=== PATIENT | female | born 1950 | race Caucasian/White ===

== ENCOUNTER 2016-11-14 14:35 | Inpatient (IN) ==
[2016-11-14] MEDS ORDERED: SODIUM CHLORIDE 0.9% 1,000 ML IV STA (14:58)
[2016-11-14] MEDS ORDERED: ONDANSETRON 4 MG/2 ML VIAL IV STA (14:58)
[2016-11-14 15:22] LABS: Basophils % 0.3 % (0.0-0.8); Hematocrit 31.5 VOL% (35.7-47.0); Hemoglobin 10.8 GM/DL (12.0-16.0); Immature Granulocytes % 1.4 %; Lymphocytes # 0.8 10*3/uL (1.4-4.0); Lymphocytes % 11.1 % (21.3-54.2); Mean Corpuscular HGB Conc 34.3 GM/DL (32-36); Mean Corpuscular Hemoglobin 28 PG (27-34); Mean Corpuscular Volume 81.2 FL (87-102); Mean Platelet Volume 11.3 FL (9.6-12.0); Monocytes # 0.6 10*3/uL (0.11-0.8); Monocytes % 7.6 % (1.7-12.7); NRBC # 0.04 10*3/uL; Neutrophils # 5.9 10*3/uL (1.4-7.4); Neutrophils % 79.6 % (38.7-73.9); Platelet Count 228 T/CUMM (130-400); Red Blood Count 3.88 MC/CUMM (3.8-5.5); Red Cell Distribution Width 16.8 % (9.3-17.3); White Blood Count 7.4 T/CUMM (4-12)
[2016-11-14] MEDS ORDERED: HYDROmorphone 2 MG/1 ML VIAL IV STA (15:34)
[2016-11-14] MEDS ORDERED: ONDANSETRON 4 MG/2 ML VIAL ONE (15:35)
[2016-11-14] MEDS ORDERED: HYDROmorphone 2 MG/1 ML VIAL ONE (15:36)
[2016-11-14 16:21] LABS: Alanine Aminotransferase 14 U/L (13-56); Albumin 3.5 G/DL (3.4-5.0); Alkaline Phosphatase 168 U/L (45-117); Aspartate Amino Transferase 39 U/L (0-37); Bilirubin,Total < 0.39 MG/DL (0.2-1.0); Blood Urea Nitrogen 71 MG/DL (7-18); Calcium 7.7 MG/DL (8.5-10.1); Glucose 110 MG/DL (74-106); Osmolality,Calculated 296.7 MOS/KG (273-304); Potassium 2.9 MMOL/L (3.5-5.1); Sodium 138 MMOL/L (136-145); Total Protein 9.4 G/DL (6.4-8.3)
[2016-11-14] MEDS ORDERED: LOPERAMIDE 2 MG CAPSULE PO PRN ×2 (16:27)
[2016-11-14] MEDS ORDERED: MYLANTA/LIDO VISC 2:1 300 ML BOTTLE SWISH/SWAL PRN (16:27)
[2016-11-14] MEDS ORDERED: ACETAMINOPHEN 325 MG TABLET PO PRN (16:27)
[2016-11-14] MEDS ORDERED: ALUMINUM/MAGNES/SIMETH MAX STR 30 ML UDCUP PO PRN (16:27)
[2016-11-14] MEDS ORDERED: traMADol 50 MG TABLET PO PRN (16:27)
[2016-11-14] MEDS ORDERED: diphenhydrAMINE CAP 25 MG CAPSULE PO PRN (16:27)
[2016-11-14] MEDS ORDERED: MAGNESIUM HYDROXIDE SUSP 30 ML UDCUP PO PRN (16:27)
[2016-11-14] MEDS ORDERED: guaiFENesin 200 MG/10 ML UDCUP PO PRN (16:27)
[2016-11-14] MEDS ORDERED: MYLANTA/LIDO VISC 2:1 300 ML BOTTLE SWISH/SPIT PRN (16:27)
[2016-11-14] MEDS ORDERED: LACTULOSE 20 GM/30 ML UDCUP PO PRN (16:27)
[2016-11-14] MEDS ORDERED: SODIUM CHLORIDE 0.9% 1,000 ML IV SCH (16:30)
[2016-11-14] MEDS ORDERED: POTASSIUM CHLORIDE 20 MEQ TABLET PO STA (16:31)
--- NOTE | 2016-11-14 16:31 | Emergency Department Note ---
Romana Walker Hilary, am scribing for, and in the presence of, Dmitry Dean MD 14:58. Dianne Walker Phillip K, MD, personally performed the services described in this documentation, ascribed by Carolina Avendano in my presence, and it is both accurate and complete 630 . Arrival - Arrival Chief Complaint: Nausea/Vomiting/Diarrhea Stated Complaint: nausea/vomiting ED Nursing Triage Note: Brought in per EMS from home with c/o nausea/vomiting/ diarrhea onset last pm after receiving chemo injection in abdomen yesterday at cancer center. +generalized abdominal pain. +back pain. Mode of Arrival: Stretcher Limitations: No Limitations Source: Patient, Significant other, RN Notes Reviewed Time Seen by Provider: 11/14/16 14:50 - History of Present Illness HPI Narrative: Pt is a 65 y/o female brought to the ED via EMS for c/o nausea, vomiting and diarrhea which onset last night. Pts reports that she received velcade chemo injection in her abdomen yesterday at the cancer center. Pt confirms abdomen pain, back pain, nausea, vomiting and diarrhea. No other complaints or problems stated in the ED. Onset (ago): hour(s) Consistency: constant Severity: mild Severity scale (1-10): 1 Quality: cramping Date of Last Menstrual Period: hyst Allergies/Adverse Reactions: Allergies Allergy/AdvReac Type Severity Reaction Status Date / Time metformin Allergy Mild RASH Verified 11/14/16 14:47 Penicillins Allergy Unknown/Unable Verified 11/14/16 14:47 to obtain morphine AdvReac Mild Nausea Verified 11/14/16 14:47 Home Medications: Home Medications Medication Instructions Recorded Confirmed Type ALPRAZolam [Alprazolam] 1 mg PO DAILY PRN 11/14/16 11/14/16 History Aspirin EC Tab 81 mg PO QAM 11/14/16 11/14/16 History Atorvastatin [Lipitor] 20 mg PO DAILY 11/14/16 11/14/16 History Fenofibrate [Fenofibrate] 160 mg PO DAILY 11/14/16 11/14/16 History Gabapentin [Gabapentin] 800 mg PO QID 11/14/16 11/14/16 History Insulin Aspart [NovoLOG FlexPen] 7 unit SUBCUT QPM 11/14/16 11/14/16 History Insulin Degludec [Tresiba 30 - 45 unit SUBCUT QAM 11/14/16 11/14/16 History Flextouch U-200] Metoprolol Tartrate [Metoprolol 100 mg PO QAM 11/14/16 11/14/16 History Tartrate] Omeprazole [Omeprazole] 40 mg PO QAM 11/14/16 11/14/16 History Ondansetron HCl [Ondansetron HCl] 8 mg PO Q6H PRN 11/14/16 11/14/16 History Oxycodone HCl/Acetaminophen 1 tablet PO Q6H PRN 11/14/16 11/14/16 History [Oxycodone-Acetaminophen 10-325] PARoxetine HCl [Paroxetine HCl] 40 mg PO QAM 11/14/16 11/14/16 History Promethazine Tab [Phenergan Tab] 25 mg PO Q8H 11/14/16 11/14/16 History Triamterene/Hydrochlorothiazid 1 each PO QAM 11/14/16 11/14/16 History [Triamterene-Hctz 37.5-25 mg Tb] Review of System - Review of System 12 point system: reviewed and no additional remarkable complaints except as stated - Review of System Constitutional: Absent: fever Gastrointestinal: Present: abdominal pain, nausea, vomiting, diarrhea Musculoskeletal: Present: back pain Medical,Surgical,& Family Hx - Medical History Cardio: History of: Hypertension Neurology: No history of: Seizures Endocrine: History of: Diabetes Mellitus (IDDM) Musculoskeletal: History of: Back/Neck Problems Other: History of: Cancer (multiple myeloma) - Surgical History Reproductive Surgeries: Surgical HX of;: Hysterectomy Orthopedic Surgeries: Surgical HX of;: Orthopedic Surgery - Social History Smoking Status: Never smoker Frequency of Alcohol Use: None Type of Drug Use: None Exam Vital Signs: Vital Signs Temperature 97.6 F 11/14/16 14:42 Pulse Rate 93 H 11/14/16 15:50 Respiratory Rate 20 11/14/16 15:50 Blood Pressure 169/79 11/14/16 15:50 O2 Sat by Pulse Oximetry 98 11/14/16 15:50 - General General appearance: alert, in no apparent distress - Head Head exam: Present: atraumatic, normocephalic - Eye Eye exam: Present: PERRL, EOMI. Absent: normal appearance (pale conjuctiva) - ENT ENT exam: Present: mucous membranes dry (pale), TM's normal bilaterally. Absent : mucous membranes moist - Neck Neck exam: Present: full ROM, trachea midline. Absent: tenderness - Chest Chest inspection: Present: symmetric chest wall rise. Absent: tenderness - Respiratory Respiratory exam: Present: normal lung sounds bilaterally. Absent: respiratory distress - Cardiovascular Cardiovascular exam: Present: regular rate, normal rhythm, normal heart sounds. Absent: murmur, rubs, gallop - Abdominal Exam Abdominal exam: Present: soft, tenderness, diminished bowel sounds (no bowel sounds). Absent: distention, normal bowel sounds - Extremities Exam Extremities exam: Present: full ROM. Absent: tenderness, pedal edema - Back Exam Back exam: Present: full ROM. Absent: tenderness - Neurological Exam Neurological exam: Present: alert, oriented X3, CN II-XII intact. Absent: motor sensory deficit - Psychiatric Psychiatric exam: Present: normal affect, normal mood - Skin Skin exam: Present: warm, dry, intact, normal color. Absent: rash Results - Labs CBC & BMP: 11/14/16 14:58 11/14/16 15:45 Lab Results: I have reviewed the patients labs Disposition Clinical Impression: Multiple myeloma, Nausea vomiting and diarrhea, Abdominal pain, Hypocalcemia, Chronic renal failure, Dehydration Case discussed with: patient, patient's family, patient's physician Disposition: Still a Patient Condition: Guarded Additional Instructions: Admit to dr. ledbetter
[2016-11-14 16:46] LABS: Magnesium 1.1 MG/DL (1.8-2.4); Uric Acid 14.5 MG/DL (2.6-6.0)
[2016-11-14] MEDS ORDERED: POTASSIUM CHLORIDE 20 MEQ TABLET PO ONE (17:07)
[2016-11-14] MEDS ORDERED: DEXT 5% NACL 0.45% KCL 20 MEQ 20 MEQ/1,000 ML BAG IV SCH (18:25)
[2016-11-14] MEDS: ONDANSETRON 4 MG/2 ML VIAL IV PRN (18:45)
[2016-11-14] MEDS ORDERED: MAGNESIUM SULF RIDER 4 GM in PREMIX 1 EACH IV ONE (18:57)
[2016-11-14] MEDS: HYDROmorphone 2 MG/1 ML VIAL IV PRN (19:18)
[2016-11-14] MEDS: SODIUM BICARB INJ 50 MEQ, POTASSIUM CHLORIDE INJ 20 MEQ in DEXTROSE 5% NACL 0.45% 1,000 ML IV SCH (20:42)
[2016-11-14] MEDS ORDERED: POTASSIUM CHLORIDE 20 MEQ TABLET PO SCH (21:00)
[2016-11-14] MEDS: PROMETHAZINE INJ 25 MG in SODIUM CHLORIDE 0.9% 50 ML IV PRN (22:39)
[2016-11-15] MEDS: HYDROmorphone 2 MG/1 ML VIAL IV PRN ×5 (01:13→19:27)
[2016-11-15] MEDS: ONDANSETRON 4 MG/2 ML VIAL IV PRN (01:18)
[2016-11-15] MEDS: PROMETHAZINE INJ 25 MG in SODIUM CHLORIDE 0.9% 50 ML IV PRN ×3 (02:46→19:27)
--- NOTE | 2016-11-15 06:12 | XRay Report ---
Exam: XR KUB Date: 11/15/2016 5:21 AM Comparison: None Indication: Nausea and vomiting Technique:[Supine abdomen] Findings: Mild gaseous distention of the stomach and proximal duodenum. Otherwise there is diminished gas in the bowel. Prior cholecystectomy with extensive postoperative findings in the thoracic and lumbar spine with laminectomy defects and fusion. Multiple bilateral rib fractures are noted in various stages of healing with small lytic lesions. Osteopenia. 12 mm chronic finding in the right ilium. Impression: Mild gaseous distention of the stomach and proximal duodenum which could be related to ileus, pancreatitis, early bowel obstruction, etc. Follow-up x-ray may be helpful for further evaluation. Osseous findings consistent with known multiple myeloma with multiple rib fractures in various stages of healing and extensive postoperative findings in the spine. Prior cholecystectomy with probable 12 mm benign bone island in the right ilium. PROCEDURE INTERPRETED AT [facility] DEPARTMENT OF RADIOLOGY Final Report Signed by: Dr. Brenda Aguayo
[2016-11-15 06:32] LABS: Basophils % 0.2 % (0.0-0.8); Hematocrit 25.7 VOL% (35.7-47.0); Immature Granulocytes % 1.8 %; Immature Granulocytes Absolute 0.08 #; Lymphocytes # 0.6 10*3/uL (1.4-4.0); Lymphocytes % 14.3 % (21.3-54.2); Mean Corpuscular HGB Conc 33.1 GM/DL (32-36); Mean Corpuscular Hemoglobin 27 PG (27-34); Mean Corpuscular Volume 82.4 FL (87-102); Mean Platelet Volume 12.6 FL (9.6-12.0); Monocytes # 0.5 10*3/uL (0.11-0.8); Monocytes % 10.8 % (1.7-12.7); NRBC # 0.02 10*3/uL; Neutrophils # 3.3 10*3/uL (1.4-7.4); Neutrophils % 72.9 % (38.7-73.9); Platelet Count 215 T/CUMM (130-400); Red Blood Count 3.12 MC/CUMM (3.8-5.5); Red Cell Distribution Width 16.9 % (9.3-17.3)
[2016-11-15 07:04] LABS: Albumin 3.1 G/DL (3.4-5.0); Bilirubin,Total 0.9 MG/DL (0.2-1.0); Calcium 7.1 MG/DL (8.5-10.1); Hemoglobin 8.5 GM/DL (12.0-16.0); Magnesium 3.3 MG/DL (1.8-2.4); Osmolality,Calculated 305.5 MOS/KG (273-304); Potassium 3.2 MMOL/L (3.5-5.1); Total Protein 8.1 G/DL (6.4-8.3); White Blood Count 4.5 T/CUMM (4-12)
--- NOTE | 2016-11-15 07:10 | XRay Report ---
Portable chest Date: 11/15/2016 Clinical history: Nasogastric tube placement Comparison: 11/15/2016 Technique: Portable limited AP chest Findings: The tip of the nasogastric tube projects in the stomach. Limited evaluation the chest. Impression: The tip of the nasogastric tube projects in satisfactory position in the stomach. PROCEDURE INTERPRETED AT [facility] DEPARTMENT OF RADIOLOGY Final Report Signed by: Dr. Brenda Aguayo
[2016-11-15] MEDS: SODIUM BICARB INJ 50 MEQ, POTASSIUM CHLORIDE INJ 20 MEQ in DEXTROSE 5% NACL 0.45% 1,000 ML IV SCH ×2 (07:23→18:26)
--- NOTE | 2016-11-15 07:40 | Oncology History&Physical ---
Assessment and Plan - Time spent with patient Time spent with patient: Greater than 30 minutes (1) Pancreatitis Status: Acute Assessment and plan: We will continue with IV fluids. Will keep her n.p.o. and leave the NG tube in place for now. I will increase her Dilaudid doses to 2 mg with each injection. She will likely remain in the hospital for a few days while her pancreatitis resolves. We will check labs tomorrow morning including a lipase. I will keep sodium bicarb and potassium in her IV fluids for now. Current Visit: Yes (2) Hypokalemia Status: Acute Current Visit: Yes (3) Metabolic acidosis Status: Acute Current Visit: Yes (4) Hypomagnesemia Status: Acute Current Visit: Yes (5) Multiple myeloma Status: Acute Current Visit: Yes (6) Nausea vomiting and diarrhea Status: Acute Current Visit: Yes (7) Abdominal pain Status: Acute Current Visit: Yes (8) Chronic renal failure Status: Acute Current Visit: Yes History of Present Illness History of present illness: Ms. Fuentes is a 65 year old female with newly diagnosed multiple myeloma who have been treating with Velcade for the last 2 months. She presented to emergency room yesterday with severe abdominal pain and nausea with vomiting. Her lipase is elevated at 981. She is admitted for further treatment. She is placed on IV fluids and made n.p.o. She was also hypokalemic and hypomagnesemic. Her bicarb level was down to 12 as well. She has chronic kidney disease at baseline with a normal creatinine between 2.5 and 3.5. Her creatinine yesterday was slightly elevated at 3.8. During the night she developed severe nausea and vomiting. Abdominal x-ray was done which showed dilation of the stomach and the duodenum with findings consistent with pancreatitis. This is a rare side effect with subcu Velcade. She feels better now with an NG tube in place. We are aggressively providing IV fluids. Her potassium is improving. Her magnesium level is now greater than 3. Her bicarb level has improved as well. Home Medications Medication Instructions Recorded Confirmed Type ALPRAZolam [Alprazolam] 1 mg PO DAILY PRN 11/14/16 11/14/16 History Aspirin EC Tab 81 mg PO QAM 11/14/16 11/14/16 History Atorvastatin [Lipitor] 20 mg PO DAILY 11/14/16 11/14/16 History Fenofibrate [Fenofibrate] 160 mg PO DAILY 11/14/16 11/14/16 History Gabapentin [Gabapentin] 800 mg PO QID 11/14/16 11/14/16 History Insulin Aspart [NovoLOG FlexPen] 7 unit SUBCUT QPM 11/14/16 11/14/16 History Insulin Degludec [Tresiba 30 - 45 unit SUBCUT QAM 11/14/16 11/14/16 History Flextouch U-200] Metoprolol Tartrate [Metoprolol 100 mg PO QAM 11/14/16 11/14/16 History Tartrate] Omeprazole [Omeprazole] 40 mg PO QAM 11/14/16 11/14/16 History Ondansetron HCl [Ondansetron HCl] 8 mg PO Q6H PRN 11/14/16 11/14/16 History Oxycodone HCl/Acetaminophen 1 tablet PO Q6H PRN 11/14/16 11/14/16 History [Oxycodone-Acetaminophen 10-325] PARoxetine HCl [Paroxetine HCl] 40 mg PO QAM 11/14/16 11/14/16 History Promethazine Tab [Phenergan Tab] 25 mg PO Q8H 11/14/16 11/14/16 History Triamterene/Hydrochlorothiazid 1 each PO QAM 11/14/16 11/14/16 History [Triamterene-Hctz 37.5-25 mg Tb] Allergies Allergy/AdvReac Type Severity Reaction Status Date / Time metformin Allergy Mild RASH Verified 11/14/16 14:47 Penicillins Allergy Unknown/Unable Verified 11/14/16 14:47 to obtain morphine AdvReac Mild Nausea Verified 11/14/16 14:47 Medical,Surgical,& Family Hx - Medical History Cardio: History of: Hypertension Neurology: No history of: Seizures Endocrine: History of: Diabetes Mellitus (IDDM) Gastrointestinal: History of: Clostridium Difficile, GERD Musculoskeletal: History of: Back/Neck Problems Other: History of: Cancer (multiple myeloma) - Surgical History Reproductive Surgeries: Surgical HX of;: Hysterectomy Orthopedic Surgeries: Surgical HX of;: Orthopedic Surgery (3 Back surgery (Rods & Screws) since February) - Family History Family History: Comment Only: Family Cancer (Lung & Stomach Cancer) - Social History Smoking Status: Never smoker Frequency of Alcohol Use: None Type of Drug Use: None 12 point system: reviewed and no additional remarkable complaints except as stated - Constitutional Constitutional: Present: fatigue - Respiratory Respiratory: Absent: cough, dyspnea - Gastrointestinal Gastrointestinal: Present: abdominal pain, nausea, vomiting Exam - Constitutional Vitals: Period Temp Pulse Resp BP Sys/Miller Pulse Ox Last 24 Hr 97.1 F-98.5 F 88-96 16-24 133-182/57-96 90-100 General appearance: normal weight, mild distress - Head Head Exam: Present: normocephalic, atraumatic - Eye Eye Exam: Present: EOMI Pupils: Present: PERRL - ENT ENT exam: Present: normal exam, normal oropharynx - Neck Neck exam: Absent: lymphadenopathy, thyromegaly - Respiratory Respiratory exam: Present: CTAB. Absent: wheezes - Cardiovascular Cardiovascular exam: Present: tachycardia. Absent: JVD, systolic murmur - GI/Abdominal GI/Abdominal exam: Present: soft. Absent: ascites, distended, firm, mass - Neurological Exam Neurological exam: Present: alert, oriented X3 - Psychiatric Psychiatric exam: Present: normal affect, normal mood - Skin Skin exam: Present: warm, dry Results - Labs CBC & BMP: 11/15/16 04:46 11/15/16 04:46 Lab Results: I have reviewed the past 24 hour labs - Diagnostic Findings Procedure: Chest x-ray: report reviewed by me, KUB x-ray: report reviewed by me
[2016-11-15 10:03] LABS: Apearance,Urine Clear (Clear); Bacteria,Urine Occasional /HPF (Few); Bilirubin,Urine Negative (Negative); Blood, Urine NEGATIVE (Negative); Glucose,Urine (UA) Negative (Negative); Ketones,Urine 25 mg/dL (Negative); Mucus,Urine Occasional /LPF (Occasional); Nitrite,Urine Negative (Negative); Protein,Urine 30 MG/DL; RBC,Urine 2 /HPF (0-4); Squamous Epithelial Cell,Urine Occasional /HPF (0-10); Urine Color Yellow (Yellow); WBC,Urine 4 /HPF (0-6)
[2016-11-15 10:04] LABS: Urine Urobilinogen 0.2 EU/DL (0.2-1.0)
--- NOTE | 2016-11-15 12:55 | Ultrasound Report ---
US right upper quadrant Indication: Pain in the abdomen. Possible pancreatitis. Comparison: None. Technique: Using transcutaneous probe, ultrasound imaging of the right upper quadrant was performed. Ultrasound images were captured and stored. Imaged structures include the liver, gallbladder, pancreas, right kidney, aorta, and inferior vena cava. Findings: Visualized portion of the pancreatic head and pancreatic body demonstrate no significant abnormalities. The liver is not well visualized. As measured, the right hepatic lobe is 12.9 cm. The reliability of this representing an accurate measurement of craniocaudal dimension is questionable. Color flow is present within the interrogated portal and hepatic venous segments. Common bile duct is normal measuring 4.1 mm. Right kidney measures 10.2 cm in craniocaudal dimension. The aorta and inferior vena cava are not identified. Gallbladder is not identified and may be surgically absent. Impression: 1. No specific abnormality of the abdomen is demonstrated. Correlation with serum lipase is recommended. 11/15/2016 12:37 PM PROCEDURE INTERPRETED AT [facility] DEPARTMENT OF RADIOLOGY Final Report Signed by: Dr. Bong Amin
[2016-11-16] MEDS: SODIUM BICARB INJ 50 MEQ, POTASSIUM CHLORIDE INJ 20 MEQ in DEXTROSE 5% NACL 0.45% 1,000 ML IV SCH ×2 (00:11→09:01)
[2016-11-16] MEDS: PROMETHAZINE INJ 25 MG in SODIUM CHLORIDE 0.9% 50 ML IV PRN ×2 (00:14→04:15)
[2016-11-16] MEDS: HYDROmorphone 2 MG/1 ML VIAL IV PRN ×10 (00:14→23:55)
[2016-11-16 04:45] LABS: Eosinophils % 0.3 % (0.00-10.9); Hematocrit 21.8 VOL% (35.7-47.0); Hemoglobin 7.4 GM/DL (12.0-16.0); Immature Granulocytes % 1.1 %; Immature Granulocytes Absolute 0.04 #; Lymphocytes # 0.9 10*3/uL (1.4-4.0); Lymphocytes % 24.6 % (21.3-54.2); Mean Corpuscular HGB Conc 33.9 GM/DL (32-36); Mean Corpuscular Hemoglobin 28 PG (27-34); Mean Corpuscular Volume 82.3 FL (87-102); Mean Platelet Volume 11.6 FL (9.6-12.0); Monocytes # 0.7 10*3/uL (0.11-0.8); Monocytes % 19.5 % (1.7-12.7); Neutrophils % 54.5 % (38.7-73.9); Platelet Count 180 T/CUMM (130-400); Red Blood Count 2.65 MC/CUMM (3.8-5.5); Red Cell Distribution Width 17.1 % (9.3-17.3); White Blood Count 3.7 T/CUMM (4-12)
[2016-11-16 05:11] LABS: Lymphocytes 25 % (20-55); Microcytosis 2+; Platelet Estimate Normal; Segmented Neutrophils 67 % (50-85)
[2016-11-16 05:12] LABS: Anisocytosis 2+; Hypochromasia 2+; Total Cells Counted 100
[2016-11-16 05:28] LABS: Bilirubin,Total 0.5 MG/DL (0.2-1.0); Magnesium 2.3 MG/DL (1.8-2.4); Osmolality,Calculated 301.1 MOS/KG (273-304); Potassium 3.3 MMOL/L (3.5-5.1); Total Protein 7.4 G/DL (6.4-8.3)
[2016-11-16] MEDS ORDERED: SODIUM CHLORIDE 0.9% 250 ML IV PRN (06:31)
--- NOTE | 2016-11-16 06:38 | Oncology Progress Note ---
Assessment and Plan (1) Hypokalemia Status: Acute Current Visit: Yes (2) Metabolic acidosis Status: Acute Current Visit: Yes (3) Hypomagnesemia Status: Acute Current Visit: Yes (4) Multiple myeloma Status: Acute Current Visit: Yes (5) Nausea vomiting and diarrhea Status: Acute Current Visit: Yes (6) Abdominal pain Status: Acute Current Visit: Yes (7) Chronic renal failure Status: Acute Current Visit: Yes (8) Acute pancreatitis Status: Acute Current Visit: Yes Oncology Subjective PN Interval history: Ms. Fuentes is a 65-year-old white female with newly diagnosed multiple myeloma who I have been treating with Velcade injections and was admitted to the hospital this past Sunday with acute pancreatitis. I have no other explanation for the pancreatitis other than Velcade induced. She has improved with conservative measures. She had NG tube placed due to severe nausea. Her nausea has improved. This morning we are allowing her to take in water only why her NG tube is off suction. If she does not have any severe nausea, we could then remove the NG tube later today. We will still hold off on advancing her diet until tomorrow. I would prefer to only take sips of water today. Her lipase level is decreasing and is down to just over 600 today. Her hemoglobin is down to 7.9 so I will give her 2 units of blood. Her potassium and bicarb level have improved. She seems to be improving at a good rate. I anticipate that she will be in the hospital for at least a few more days. I am going from now until next Sunday. I told her that if she is discharged before I get back that she does not need to have any more Velcade injections and just wait to see me in clinic at her next scheduled appointment for us to decide what we are going to do about her treatment. I am considering converting her to Revlimid. Exam - Constitutional Vitals: Period Temp Pulse Resp BP Sys/Miller Pulse Ox Last 24 Hr 96.2 F-98.3 F 91-106 18-22 129-173/69-81 90-98 General appearance: normal weight, mild distress - Head Head Exam: Present: normocephalic, atraumatic - Eye Eye Exam: Present: EOMI Pupils: Present: PERRL - ENT ENT exam: Present: normal exam, normal oropharynx - Neck Neck exam: Absent: lymphadenopathy, thyromegaly - Respiratory Respiratory exam: Present: CTAB. Absent: wheezes - Cardiovascular Cardiovascular exam: Present: RRR. Absent: JVD, systolic murmur - GI/Abdominal GI/Abdominal exam: Present: tenderness, soft. Absent: ascites, distended, firm , mass - Neurological Exam Neurological exam: Present: alert, oriented X3 Results - Labs CBC & BMP: 11/16/16 04:23 11/16/16 04:23 Lab Results: I have reviewed the past 24 hour labs
[2016-11-16] MEDS: DEXT 5% NACL 0.45% KCL 20 MEQ 20 MEQ/1,000 ML BAG IV SCH (08:11)
--- NOTE | 2016-11-16 09:08 | Physician Query Form ---
CLICK EDIT DOCUMENT TO SELECT QUERY ANSWER --> OK --> SIGN Yoselyn Ding RN Clinical Sales Representative [employer] W) [phone] (f) [phone] [email or web address] PROVIDERS: Make your selection(s) from the choices in EACH section by typing an "x" and enter comments in the comment section. Please use your independent medical judgment in providing your response. This request does not imply that any particular answer is desired or expected. CLINICAL INDICATORS: (Providers should not edit this section) Based on documentation of "She has chronic kidney disease at baseline with a normal creatinine between 2.5 and 3.5". Creatinine on admission of 3.90 with a GFR of 12 and decreased to 3.10. Pt. treated with IV fluids of Normal Saline. Clarify which of the following most accurately represents the patient's renal status: ( ) Acute kidney injury (non-traumatic) ( ) Acute renal failure (x ) Acute renal failure with underlying Chronic Kidney Disease (CKD) - please provide stage below ( ) CKD - please provide stage below ( ) Other, please specify: ( ) Clinically unable to determine Chronic Kidney Disease Stages Source: National Kidney Disease Foundation ( ) Stage I (eGFR > or = 90) ( ) Stage II (eGFR 60 - 89) ( ) Stage III (eGFR 30 - 59) ( ) Stage IV (eGFR 15 - 29) ( ) Stage V (eGFR < 15 or dialysis) COMMENTS: PLEASE ALSO DOCUMENT RESPONSE IN PROGRESS NOTES AND/OR DISCHARGE SUMMARY Use of terms such as suspected, likely, or probable (associated with a specific diagnosis that is being evaluated, monitored, or treated as if it exists) are acceptable and can be restated in the discharge summary if not ruled out. MTDD
[2016-11-16] MEDS: ONDANSETRON 4 MG/2 ML VIAL IV PRN (16:41)
[2016-11-17] MEDS: HYDROmorphone 2 MG/1 ML VIAL IV PRN ×6 (02:24→21:38)
[2016-11-17] MEDS: DEXT 5% NACL 0.45% KCL 20 MEQ 20 MEQ/1,000 ML BAG IV SCH ×2 (02:24→15:52)
[2016-11-17 05:48] LABS: Basophils % 0.2 % (0.0-0.8); Eosinophils # 0.1 10*3/uL (0.0-0.87); Eosinophils % 2.4 % (0.00-10.9); Hematocrit 31.3 VOL% (35.7-47.0); Immature Granulocytes % 0.6 %; Immature Granulocytes Absolute 0.03 #; Lymphocytes % 19.7 % (21.3-54.2); Mean Corpuscular HGB Conc 33.2 GM/DL (32-36); Mean Corpuscular Hemoglobin 29 PG (27-34); Mean Corpuscular Volume 85.8 FL (87-102); Mean Platelet Volume 12.5 FL (9.6-12.0); Monocytes # 0.9 10*3/uL (0.11-0.8); Monocytes % 17.7 % (1.7-12.7); Neutrophils % 59.4 % (38.7-73.9); Platelet Count 158 T/CUMM (130-400); Red Cell Distribution Width 16.1 % (9.3-17.3)
[2016-11-17 06:03] LABS: Hemoglobin 10.4 GM/DL (12.0-16.0); Red Blood Count 3.65 MC/CUMM (3.8-5.5); White Blood Count 5.1 T/CUMM (4-12)
[2016-11-17 06:11] LABS: Calcium 7.7 MG/DL (8.5-10.1); Osmolality,Calculated 293.1 MOS/KG (273-304); Potassium 3.4 MMOL/L (3.5-5.1)
[2016-11-17 06:39] LABS: Band Neutrophils 2 % (0-10); Eosinophils 4 % (0-10); Hypochromasia 1+; Lymphocytes 18 % (20-55); Segmented Neutrophils 67 % (50-85); Total Cells Counted 100
[2016-11-17 06:40] LABS: Microcytosis 1+; Platelet Estimate Adequate
--- NOTE | 2016-11-17 09:12 | Oncology Progress Note ---
Oncology Subjective PN Interval history: (1) Hypokalemia Normal potassium. (2) Metabolic acidosis Resolved. (3) Hypomagnesemia (4) Multiple myeloma (4 /2) Anemia Lab work today includes a white cell count of 5100 with a hemoglobin of 10.4 and a platelet count of 158,000. (5) Nausea vomiting and diarrhea Status: Acute Current Visit: Yes (6) Abdominal pain Status: Acute Current Visit: Yes (7) Chronic renal failure Serum creatinine has dropped to 2.3. (8) Acute pancreatitis Lipase is still elevated today at 642. Status: Acute Current Visit: Yes (9) hyperuricemia Her uric acid level was 14.5 on admission. We will recheck this. Oncology Subjective PN Interval history: Ms. Fuentes is a 65-year-old white female with newly diagnosed multiple myeloma who I have been treating with Velcade injections and was admitted to the hospital this past Sunday with acute pancreatitis. I have no other explanation for the pancreatitis other than Velcade induced. She has improved with conservative measures. She had NG tube placed due to severe nausea. The NG tube has been removed. She still has nausea and abdominal distention and on physical examination her abdomen is relatively silent. I hear very few if any bowel sounds. I told her we can replace the NG tube if necessary. She has a prior history of requiring a biliary stent. She also has a prior history of diarrhea secondary to Clostridium difficile. She still having some loose stool so will recheck the C. difficile. In addition, I am consulting gastroenterology to see her with us. Her GI history is complicated. She may have pancreatitis from the Velcade but it may also be due to the bile duct problems. In addition, some of her GI complaints could easily be related to Clostridium difficile or sequelae from it including acquired worsening of lactose intolerance. Lungs: Clear with normal breath sounds. Cardiovascular: Heart rhythm regular without murmur, gallop or rub. No jugular venous distention: Abdomen: Distended with very quiet bowel sounds and with diffuse tenderness. Most tender in left upper quadrant. Musculoskeletal: No focal muscle atrophy or bone or joint deformity. Neurologic: Cranial nerves II through XII are intact. There are no focal neurologic deficits. Psychiatric: Fully oriented and alert. Exam - Constitutional Vitals: Period Temp Pulse Resp BP Sys/Miller Pulse Ox Last 24 Hr 96.6 F-98.9 F 87-106 16-20 147-199/68-92 85-95 Results - Labs CBC & BMP: 11/17/16 04:52 11/17/16 04:52
--- NOTE | 2016-11-17 11:26 | Gastrointestinal Consult Note ---
Assessment and Plan (1) Acute pancreatitis Status: Acute Assessment and plan: 11/17-3 week history of abdominal pain, worsened following chemotherapy tx ( Velcade) with findings of elevated lipase, now trending down. Associated complaints of nausea, vomiting and diarrhea, now resolved. KUB noted as below. Hx of C. diff noted. Hx of biliary stenting noted as below. NG tube removed today. Continue to monitor at present time. Plan and addendum to follow by Dr Nathan. Current Visit: Yes History of Present Illness Chief complaint: Pancreatitis History of present illness: Ms. Fuentes is a 65 year old female who was admitted to the hospital with onset of abdominal pain. Pt has recently been diagnosed with Multiple Myeloma approximately a month ago per patient and states she had Velcade injections started 3 weeks ago. She states not long after this she had onset of LUQ abdominal pain that radiated into her back. She states the pain was fairly constant however wavered in intensity. She has a history of chronic back pain and felt this was possibly related to this however the pain continued to worsen. She states that it at times seemed to be worse with meal ingestion and at other times not. She was then admitted to the hospital on 11/14 with nausea, vomiting and diarrhea after being seen at the cancer center for a chemotherapy treatment. Pt was found on admission to have pancreatitis with lipase level at 981. She had no leukocytosis and denies any fever or chills. She denies any recent weight loss. Denies any tobacco or alcohol use. She has a history of cholecystectomy years ago at [facility] and what sounds like ERCP with biliary stent placement at that time which she states was removed. She also has a history of C. diff in the past. Her lipase levels are down to 642 at this time. KUB with findings of mild gaseous distention of stomach and proximal duodenum possibly related to ileus. No records in our facility database noted for inpatient visits. She states she has been seen at [facility] in the past. Home Medications Medication Instructions Recorded Confirmed Type ALPRAZolam [Alprazolam] 1 mg PO DAILY PRN 11/14/16 11/14/16 History Aspirin EC Tab 81 mg PO QAM 11/14/16 11/14/16 History Atorvastatin [Lipitor] 20 mg PO DAILY 11/14/16 11/14/16 History Fenofibrate [Fenofibrate] 160 mg PO DAILY 11/14/16 11/14/16 History Gabapentin [Gabapentin] 800 mg PO QID 11/14/16 11/14/16 History Insulin Aspart [NovoLOG FlexPen] 7 unit SUBCUT QPM 11/14/16 11/14/16 History Insulin Degludec [Tresiba 30 - 45 unit SUBCUT QAM 11/14/16 11/14/16 History Flextouch U-200] Metoprolol Tartrate [Metoprolol 100 mg PO QAM 11/14/16 11/14/16 History Tartrate] Omeprazole [Omeprazole] 40 mg PO QAM 11/14/16 11/14/16 History Ondansetron HCl [Ondansetron HCl] 8 mg PO Q6H PRN 11/14/16 11/14/16 History Oxycodone HCl/Acetaminophen 1 tablet PO Q6H PRN 11/14/16 11/14/16 History [Oxycodone-Acetaminophen 10-325] PARoxetine HCl [Paroxetine HCl] 40 mg PO QAM 11/14/16 11/14/16 History Promethazine Tab [Phenergan Tab] 25 mg PO Q8H 11/14/16 11/14/16 History Triamterene/Hydrochlorothiazid 1 each PO QAM 11/14/16 11/14/16 History [Triamterene-Hctz 37.5-25 mg Tb] Allergies Allergy/AdvReac Type Severity Reaction Status Date / Time metformin Allergy Mild RASH Verified 11/14/16 14:47 Penicillins Allergy Unknown/Unable Verified 11/14/16 14:47 to obtain morphine AdvReac Mild Nausea Verified 11/14/16 14:47 Medical,Surgical,& Family Hx - Medical History Cardio: History of: Hypertension Neurology: No history of: Seizures Endocrine: History of: Diabetes Mellitus (IDDM) Gastrointestinal: History of: Clostridium Difficile, GERD Musculoskeletal: History of: Back/Neck Problems Other: History of: Cancer (multiple myeloma) - Surgical History Reproductive Surgeries: Surgical HX of;: Hysterectomy Orthopedic Surgeries: Surgical HX of;: Orthopedic Surgery (3 Back surgery (Rods & Screws) since February) - Family History Family History: Comment Only: Family Cancer (Lung & Stomach Cancer) - Social History Smoking Status: Never smoker Frequency of Alcohol Use: None Type of Drug Use: None 12 point system: reviewed and no additional remarkable complaints except as stated - Constitutional Constitutional: Present: as per HPI - EENT Eyes: Present: as per HPI Ears: Present: as per HPI Nose, mouth and throat: Present: as per HPI - Cardiovascular Cardiovascular: Present: as per HPI - Respiratory Respiratory: Present: as per HPI - Gastrointestinal Gastrointestinal: Present: as per HPI, abdominal pain, nausea, vomiting - Genitourinary Genitourinary: Present: as per HPI - Musculoskeletal Musculoskeletal: Present: as per HPI - Neurological Neurological: Present: as per HPI - Psychiatric Psychiatric: Present: as per HPI - Endocrine Endocrine: Present: as per HPI - Hematologic/Lymphatic Hematologic/Lymphatic: Present: as per HPI Exam - Constitutional Vitals: Period Temp Pulse Resp BP Sys/Miller Pulse Ox Last 24 Hr 96.6 F-98.9 F 87-106 16-20 148-199/74-92 85-95 General appearance: normal weight, no acute distress - Head Head exam: Present: normal inspection, normocephalic - Eye Eye exam: Present: other (lids and conjunctiva unremarkable). Absent: scleral icterus - ENT ENT exam: Present: normal exam, normal oropharynx - Neck Neck exam: Present: normal inspection - Respiratory Respiratory exam: Present: clear to auscultation bilaterally. Absent: rales, rhonchi, wheezes - Cardiovascular Cardiovascular exam: Present: regular rate and rhythm. Absent: diastolic murmur , JVD, systolic murmur - GI/Abdominal GI/Abdominal exam: Present: normal bowel sounds, tenderness (LUQ), soft. Absent : ascites, distended, mass, organomegaly - Extremities Exam Extremities exam: Present: normal inspection, full ROM - Back Exam Back exam: Present: normal inspection - Neurological Exam Neurological exam: Present: alert, oriented X3 - Psychiatric Psychiatric exam: Present: normal affect, normal mood - Skin Skin exam: Present: normal color, warm, dry Results - Labs CBC & BMP: 11/17/16 04:52 11/17/16 04:52 Lab Results: I have reviewed the past 24 hour labs
[2016-11-17] MEDS: ALPRAZolam 0.25 MG TABLET PO PRN (15:50)
[2016-11-17] MEDS: TEMAZEPAM 7.5 MG CAPSULE PO PRN (23:10)
[2016-11-18 04:33] LABS: Basophils % 0.4 % (0.0-0.8); Eosinophils # 0.3 10*3/uL (0.0-0.87); Eosinophils % 5.5 % (0.00-10.9); Hematocrit 31.5 VOL% (35.7-47.0); Hemoglobin 10.2 GM/DL (12.0-16.0); Immature Granulocytes % 0.6 %; Immature Granulocytes Absolute 0.03 #; Lymphocytes # 1.2 10*3/uL (1.4-4.0); Lymphocytes % 23.6 % (21.3-54.2); Mean Corpuscular HGB Conc 32.4 GM/DL (32-36); Mean Corpuscular Hemoglobin 28 PG (27-34); Mean Corpuscular Volume 86.3 FL (87-102); Mean Platelet Volume 11.8 FL (9.6-12.0); Monocytes % 19.4 % (1.7-12.7); NRBC # 0.02 10*3/uL; Neutrophils # 2.5 10*3/uL (1.4-7.4); Neutrophils % 50.5 % (38.7-73.9); Platelet Count 149 T/CUMM (130-400); Red Blood Count 3.65 MC/CUMM (3.8-5.5); Red Cell Distribution Width 15.9 % (9.3-17.3)
[2016-11-18] MEDS: DEXT 5% NACL 0.45% KCL 20 MEQ 20 MEQ/1,000 ML BAG IV SCH ×2 (05:08→17:33)
[2016-11-18 05:16] LABS: Albumin 2.8 G/DL (3.4-5.0); Bilirubin,Total 0.6 MG/DL (0.2-1.0); Calcium 7.5 MG/DL (8.5-10.1); Osmolality,Calculated 283.4 MOS/KG (273-304); Potassium 3.4 MMOL/L (3.5-5.1); Total Protein 6.9 G/DL (6.4-8.3)
[2016-11-18] MEDS: HYDROmorphone 2 MG/1 ML VIAL IV PRN ×2 (05:21→20:58)
[2016-11-18 05:58] LABS: Anisocytosis 1+; Band Neutrophils 4 % (0-10); Eosinophils 5 % (0-10); Lymphocytes 19 % (20-55); Metamyelocytes 2 %; Myelocytes 5 %; Platelet Estimate Adequate; Segmented Neutrophils 60 % (50-85); Total Cells Counted 100
[2016-11-18] MEDS: ALPRAZolam 0.25 MG TABLET PO PRN (10:00)
--- NOTE | 2016-11-18 10:37 | Oncology Progress Note ---
Oncology Subjective PN Interval history: (1) Hypokalemia Normal potassium. (2) Metabolic acidosis Resolved. (3) Hypomagnesemia (4) Multiple myeloma (4 1/2) Anemia Lab work today includes a hemoglobin of 10.2. (5) Nausea vomiting and diarrhea Improved today. She is generally feeling better. (6) Abdominal pain Status: Acute Current Visit: Yes (7) Chronic renal failure Serum creatinine has dropped to 1.9. (8) Acute pancreatitis Lipase is still elevated today but falling.Lipase down to 457.0 Her pancreatitis appears to be improving. Her abdomen is not quite as protuberant today nor is it is tender. (9) hyperuricemia Her uric acid level was 10.7 on admission. We will recheck this. I am wondering if some of the hyperuricemia might not have been related to metabolic acidosis. On physical examination she generally appears less acutely distressed than yesterday. Eyes: Normal lids and conjunctivae. ENT: Her oral mucosa is moist and there are no exudates. Her hearing is normal. Pulmonary: Her lungs are clear and her chest moves symmetrically with respiration. Cardiovascular: Her heart rhythm is regular without murmur, gallop or rub. There is no jugular venous distention, clubbing or cyanosis. Abdomen: Although her abdomen is still protuberant, it is less distended. Exam - Constitutional Vitals: Period Temp Pulse Resp BP Sys/Miller Pulse Ox Last 24 Hr 96.9 F-97.9 F 87-91 18-20 147-196/83-90 90-98 Results - Labs CBC & BMP: 11/18/16 02:45 11/18/16 02:45
[2016-11-18] MEDS: TEMAZEPAM 7.5 MG CAPSULE PO PRN (23:46)
[2016-11-19 03:37] LABS: Basophils % 0.4 % (0.0-0.8); Eosinophils # 0.2 10*3/uL (0.0-0.87); Eosinophils % 4.6 % (0.00-10.9); Hematocrit 31.4 VOL% (35.7-47.0); Hemoglobin 10.4 GM/DL (12.0-16.0); Immature Granulocytes % 0.6 %; Immature Granulocytes Absolute 0.03 #; Lymphocytes # 1.2 10*3/uL (1.4-4.0); Lymphocytes % 24.3 % (21.3-54.2); Mean Corpuscular HGB Conc 33.1 GM/DL (32-36); Mean Corpuscular Hemoglobin 28 PG (27-34); Mean Corpuscular Volume 84.9 FL (87-102); Mean Platelet Volume 12.3 FL (9.6-12.0); Monocytes # 0.8 10*3/uL (0.11-0.8); Monocytes % 16.3 % (1.7-12.7); Neutrophils # 2.7 10*3/uL (1.4-7.4); Neutrophils % 53.8 % (38.7-73.9); Platelet Count 173 T/CUMM (130-400); Red Cell Distribution Width 15.9 % (9.3-17.3)
[2016-11-19 04:03] LABS: Albumin 2.9 G/DL (3.4-5.0); Bilirubin,Total 1.1 MG/DL (0.2-1.0); Calcium 7.3 MG/DL (8.5-10.1); Osmolality,Calculated 286.1 MOS/KG (273-304); Potassium 3.6 MMOL/L (3.5-5.1); Total Protein 6.8 G/DL (6.4-8.3)
[2016-11-19] MEDS: DEXT 5% NACL 0.45% KCL 20 MEQ 20 MEQ/1,000 ML BAG IV SCH ×3 (05:45→19:20)
[2016-11-19] MEDS: HYDROmorphone 2 MG/1 ML VIAL IV PRN ×3 (05:51→23:40)
[2016-11-19 05:58] LABS: Atypical Lymphocytes Few; Band Neutrophils 4 % (0-10); Eosinophils 5 % (0-10); Lymphocytes 29 % (20-55); Platelet Estimate Adequate; Segmented Neutrophils 54 % (50-85); Total Cells Counted 100
--- NOTE | 2016-11-19 11:04 | Oncology Progress Note ---
Oncology Subjective PN Interval history: 1) Hypokalemia Normal potassium. (2) Metabolic acidosis Resolved. (3) Hypomagnesemia (4) Multiple myeloma White cell count 5000. (4 1/2) Anemia Lab work today includes a hemoglobin of 10.4. (5) Nausea vomiting and diarrhea Improved today. She is generally feeling better. (6) Abdominal pain Status: Acute Current Visit: Yes (7) Chronic renal failure Serum creatinine has dropped to 1.8. (8) Acute pancreatitis Lipase is still elevated today but falling.Lipase down to 457.0 Her pancreatitis appears to be improving. Her abdomen is not quite as protuberant today nor is it is tender. (9) hyperuricemia Her uric acid level was 9.4 on admission. We will recheck this. I am wondering if some of the hyperuricemia might not have been related to metabolic acidosis. (10)hypertension: Resuming blood pressure medications. I am continuing to hold several of the medications that she does not need currently in my opinion or that might aggravate her condition. On physical examination she remains acutely and chronically ill. Lids and conjunctivae are normal. Cranial nerves II through XII are intact. There are no focal neurologic deficits. Lungs are clear. Cardiovascular examination: Her heart rhythm is regular without murmur, gallop or rub and there is no jugular venous distention. 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 There appears to be some slight ascites as well. Neurologic: Cranial nerves II through XII are intact. There are no focal neurologic deficits. Skin: No significant rashes or skin lesions. Psychiatric: She is depressed. On resuming antidepressants. Exam - Constitutional Vitals: Period Temp Pulse Resp BP Sys/Miller Pulse Ox Last 24 Hr 96.7 F-98.2 F 83-94 18-20 173-196/82-94 91-96 Results - Labs CBC & BMP: 11/19/16 02:06 11/19/16 02:06
[2016-11-19] MEDS: METOPROLOL TARTRATE 100 MG TABLET PO SCH (11:48)
[2016-11-19] MEDS ORDERED: DEXTROSE 50% 25 GM/50 ML SYRINGE IV PRN (12:06)
[2016-11-19] MEDS ORDERED: GLUCAGON 1 MG VIAL IM PRN (12:06)
[2016-11-19] MEDS: PARoxetine 20 MG TABLET PO SCH (12:08)
[2016-11-19] MEDS: INSULIN LISPRO 100 UNIT/ML SUBCUT SCH (23:40)
[2016-11-20 03:29] LABS: Basophils % 0.4 % (0.0-0.8); Eosinophils # 0.2 10*3/uL (0.0-0.87); Eosinophils % 3.4 % (0.00-10.9); Hematocrit 33.2 VOL% (35.7-47.0); Immature Granulocytes % 0.4 %; Immature Granulocytes Absolute 0.02 #; Lymphocytes % 18.7 % (21.3-54.2); Mean Corpuscular HGB Conc 33.1 GM/DL (32-36); Mean Corpuscular Hemoglobin 28 PG (27-34); Mean Corpuscular Volume 85.3 FL (87-102); Mean Platelet Volume 12.2 FL (9.6-12.0); Monocytes # 0.9 10*3/uL (0.11-0.8); Monocytes % 17.2 % (1.7-12.7); Neutrophils # 3.2 10*3/uL (1.4-7.4); Neutrophils % 59.9 % (38.7-73.9); Platelet Count 180 T/CUMM (130-400); Red Blood Count 3.89 MC/CUMM (3.8-5.5); Red Cell Distribution Width 15.8 % (9.3-17.3); White Blood Count 5.3 T/CUMM (4-12)
[2016-11-20 03:51] LABS: Calcium 6.9 MG/DL (8.5-10.1); Osmolality,Calculated 289.8 MOS/KG (273-304); Potassium 3.9 MMOL/L (3.5-5.1)
[2016-11-20 04:59] LABS: Band Neutrophils 4 % (0-10); Eosinophils 2 % (0-10); Lymphocytes 19 % (20-55); Metamyelocytes 1 %; Myelocytes 8 %; Segmented Neutrophils 62 % (50-85); Total Cells Counted 100
[2016-11-20 05:00] LABS: Anisocytosis 1+; Platelet Estimate Normal
[2016-11-20] MEDS: HYDROmorphone 2 MG/1 ML VIAL IV PRN ×4 (06:38→20:50)
[2016-11-20] MEDS: DEXT 5% NACL 0.45% KCL 20 MEQ 20 MEQ/1,000 ML BAG IV SCH ×2 (08:34→20:55)
[2016-11-20] MEDS: PANTOPRAZOLE 40 MG TABLET PO SCH (08:36)
[2016-11-20] MEDS: METOPROLOL TARTRATE 100 MG TABLET PO SCH (08:36)
[2016-11-20] MEDS: PARoxetine 20 MG TABLET PO SCH (08:36)
[2016-11-20] MEDS: INSULIN LISPRO 100 UNIT/ML SUBCUT SCH ×2 (08:38→16:19)
--- NOTE | 2016-11-20 10:17 | Oncology Progress Note ---
Oncology Subjective PN Interval history: 1) Hypokalemia Normal potassium, 3.9 today. (2) Metabolic acidosis Resolved. (3) Hypomagnesemia normal magnesium at last check. (4) Multiple myeloma White cell count 5300 today. (4 1/2) Anemia Lab work today includes a hemoglobin of 11.0 today. (5) Nausea vomiting and diarrhea Much improved. (6) Abdominal pain Essentially resolved. (7) Chronic renal failure Serum creatinine has dropped to 1.6. (8) Acute pancreatitis Lipase is normal at 207 for the first time during this hospital stay Her pancreatitis appears to be improving. Her abdomen is not quite as protuberant today nor is it is tender. (9) hyperuricemia Repeat uric acid ordered for tomorrow. (10)hypertension: Blood pressure medications resumed. Blood pressure 164/84 this morning. On physical examination, general: She is chronically ill-appearing and extremely weak and debilitated. Psychiatric: She is depressed. Eyes: Normal lids and conjunctivae. ENT: Normal oral mucosa. Hearing normal. Lungs: Normal breath sounds with normal chest motion with respiration. Cardiovascular: Heart rhythm is regular without murmur, gallop or rub. No jugular venous distention, clubbing or cyanosis. Abdomen: Slightly distended. Bowel sounds are present. She appears to have no ascites. Musculoskeletal: No focal muscle atrophy or bone or joint deformity. She has generalized muscle weakness. Neurologic: Cranial nerves II through XII are intact. No focal neurologic deficits. We are continuing to monitor for toxicity and continue to monitor electrolyte imbalances, renal failure and the gradual improvement in her pancreatitis. In addition, her blood pressures are controlled. Exam - Constitutional Vitals: Period Temp Pulse Resp BP Sys/Miller Pulse Ox Last 24 Hr 96.8 F-97.8 F 71-100 18-20 159-198/76-105 93-95 Results - Labs CBC & BMP: 11/20/16 02:22 11/20/16 02:22
[2016-11-20] MEDS: ALPRAZolam 0.25 MG TABLET PO PRN (20:50)
[2016-11-21] MEDS: DEXT 5% NACL 0.45% KCL 20 MEQ 20 MEQ/1,000 ML BAG IV SCH ×3 (01:57→08:53)
[2016-11-21] MEDS: HYDROmorphone 2 MG/1 ML VIAL IV PRN ×5 (02:53→20:29)
[2016-11-21 05:35] LABS: Basophils % 0.7 % (0.0-0.8); Eosinophils # 0.1 10*3/uL (0.0-0.87); Eosinophils % 2.8 % (0.00-10.9); Hematocrit 31.6 VOL% (35.7-47.0); Hemoglobin 10.6 GM/DL (12.0-16.0); Immature Granulocytes % 0.2 %; Immature Granulocytes Absolute 0.01 #; Lymphocytes # 1.2 10*3/uL (1.4-4.0); Lymphocytes % 25.6 % (21.3-54.2); Mean Corpuscular HGB Conc 33.5 GM/DL (32-36); Mean Corpuscular Hemoglobin 29 PG (27-34); Mean Corpuscular Volume 85.2 FL (87-102); Mean Platelet Volume 11.8 FL (9.6-12.0); Monocytes # 0.8 10*3/uL (0.11-0.8); Monocytes % 17.8 % (1.7-12.7); Neutrophils # 2.4 10*3/uL (1.4-7.4); Neutrophils % 52.9 % (38.7-73.9); Platelet Count 190 T/CUMM (130-400); Red Blood Count 3.71 MC/CUMM (3.8-5.5); Red Cell Distribution Width 15.5 % (9.3-17.3); White Blood Count 4.6 T/CUMM (4-12)
[2016-11-21 06:05] LABS: Band Neutrophils 1 % (0-10); Eosinophils 4 % (0-10); Giant Platelets Few; Hypochromasia 1+; Lymphocytes 21 % (20-55); Platelet Estimate Normal; Segmented Neutrophils 61 % (50-85); Total Cells Counted 100
[2016-11-21 06:06] LABS: Microcytosis Slight
[2016-11-21 06:10] LABS: Albumin 2.7 G/DL (3.4-5.0); Calcium 6.6 MG/DL (8.5-10.1); Magnesium 0.6 MG/DL (1.8-2.4); Potassium 3.9 MMOL/L (3.5-5.1); Total Protein 6.7 G/DL (6.4-8.3)
[2016-11-21] MEDS: PROMETHAZINE INJ 25 MG in SODIUM CHLORIDE 0.9% 50 ML IV PRN ×2 (06:48→20:30)
[2016-11-21] MEDS ORDERED: MAGNESIUM SULF RIDER 2 GM in PREMIX 1 EACH IV ONE (07:40)
--- NOTE | 2016-11-21 07:44 | Oncology Progress Note ---
Assessment and Plan (1) Hypokalemia Status: Acute Current Visit: Yes (2) Metabolic acidosis Status: Acute Current Visit: Yes (3) Hypomagnesemia Status: Acute Current Visit: Yes (4) Multiple myeloma Status: Acute Current Visit: Yes (5) Nausea vomiting and diarrhea Status: Acute Current Visit: Yes (6) Abdominal pain Status: Acute Current Visit: Yes (7) Chronic renal failure Status: Acute Current Visit: Yes (8) Acute pancreatitis Status: Acute Current Visit: Yes Oncology Subjective PN Interval history: Ms. Fuentes has improved significantly over the last 4 days. Her lipase level is down to normal. She still having some nausea and is not taking much by mouth. I encouraged her to slowly start taking bites of Jell-O and chicken broth ball with her meals. Her kidney function is improved significantly and her creatinine is down to 1.5. Her CBC is stable. Her magnesium level is 0.6 today 's we will replace parenterally. Still think we have a few more days before she is ready for discharge. We are now just reaching day #6 of admission. Exam - Constitutional Vitals: Period Temp Pulse Resp BP Sys/Miller Pulse Ox Last 24 Hr 96.6 F-97.4 F 65-92 18-22 124-181/77-92 94-98 General appearance: normal weight, no acute distress - Head Head Exam: Present: normocephalic, atraumatic - Eye Eye Exam: Present: EOMI Pupils: Present: PERRL - ENT ENT exam: Present: normal exam, normal oropharynx - Neck Neck exam: Absent: lymphadenopathy, thyromegaly - Respiratory Respiratory exam: Present: CTAB. Absent: wheezes - Cardiovascular Cardiovascular exam: Present: RRR. Absent: JVD, systolic murmur - GI/Abdominal GI/Abdominal exam: Present: soft. Absent: ascites, distended, firm, mass - Neurological Exam Neurological exam: Present: alert, oriented X3 - Psychiatric Psychiatric exam: Present: normal affect, normal mood Results - Labs CBC & BMP: 11/21/16 05:18 11/21/16 05:18 Lab Results: I have reviewed the past 24 hour labs
[2016-11-21] MEDS: INSULIN LISPRO 100 UNIT/ML SUBCUT SCH ×2 (08:46→16:51)
[2016-11-21] MEDS: PARoxetine 20 MG TABLET PO SCH (08:52)
[2016-11-21] MEDS: METOPROLOL TARTRATE 100 MG TABLET PO SCH (08:52)
[2016-11-21] MEDS: PANTOPRAZOLE 40 MG TABLET PO SCH (08:52)
--- NOTE | 2016-11-21 10:52 | Gastrointestinal Progress Note ---
Assessment and Plan (1) Acute pancreatitis Status: Acute Assessment and plan: 11/21-abdominal pain slowly resolving. Episodes of nausea without vomiting. Lipase is down to normal at this time. Tolerating small amounts of clear liquids. Continue to monitor. Plan an addendum to followed by Dr. Nathan. 11/17-3 week history of abdominal pain, worsened following chemotherapy tx ( Velcade) with findings of elevated lipase, now trending down. Associated complaints of nausea, vomiting and diarrhea, now resolved. KUB noted as below. Hx of C. diff noted. Hx of biliary stenting noted as below. NG tube removed today. Continue to monitor at present time. Plan and addendum to follow by Dr Nathan. Current Visit: Yes Gastroenterology - PN: Subj Interval history: CC: Pancreatitis Patient is seen, awake and alert lying in bed. States she is feeling somewhat better today. States she rested well overnight. She states that her abdominal pain is slowly improving however she is still having this at minimum. She has had some mild nausea but denies any vomiting. Her lipase levels have normalized at this time. Abdomen soft, nontender. She is tolerating small amounts of juice and Jell-O at this time. She is not ready to advance her diet further than this. Notation of oncology continue to monitor patient at this point a little longer. ROS: Denies shortness of breath or chest pain Exam (Progress Note) - Constitutional Vitals: Period Temp Pulse Resp BP Sys/Miller Pulse Ox Last 24 Hr 96.4 F-97.4 F 65-92 18-22 124-181/77-92 93-98 General appearance: normal weight, no acute distress - Head Head exam: Present: normal inspection, normocephalic - Eye Eye exam: Present: other (Lids and conjunctivae are unremarkable). Absent: scleral icterus - ENT ENT exam: Present: normal exam - Neck Neck exam: Present: normal inspection - Respiratory Respiratory exam: Present: clear to auscultation bilaterally. Absent: rales, rhonchi, wheezes - Cardiovascular Cardiovascular exam: Present: regular rate and rhythm. Absent: diastolic murmur , JVD, systolic murmur - GI/Abdominal GI/Abdominal exam: Present: normal bowel sounds, soft. Absent: ascites, distended, mass, organomegaly, tenderness - Extremities Exam Extremities exam: Present: normal inspection, full ROM - Back Exam Back exam: Present: normal inspection - Neurological Exam Neurological exam: Present: alert, oriented X3 - Psychiatric Psychiatric exam: Present: normal affect, normal mood - Skin Skin exam: Present: normal color, warm, dry Results - Labs CBC & BMP: 11/21/16 05:18 11/21/16 05:18 Lab Results: I have reviewed the past 24 hour labs
[2016-11-21] MEDS ORDERED: PROMETHAZINE 25 MG/1 ML VIAL ONE (20:25)
[2016-11-21] MEDS: ALPRAZolam 0.25 MG TABLET PO PRN (20:29)
[2016-11-22 07:18] LABS: Basophils % 0.6 % (0.0-0.8); Eosinophils # 0.1 10*3/uL (0.0-0.87); Eosinophils % 2.6 % (0.00-10.9); Hematocrit 31.9 VOL% (35.7-47.0); Hemoglobin 10.5 GM/DL (12.0-16.0); Immature Granulocytes % 0.4 %; Immature Granulocytes Absolute 0.02 #; Lymphocytes # 1.1 10*3/uL (1.4-4.0); Lymphocytes % 24.4 % (21.3-54.2); Mean Corpuscular HGB Conc 32.9 GM/DL (32-36); Mean Corpuscular Hemoglobin 28 PG (27-34); Mean Corpuscular Volume 85.3 FL (87-102); Mean Platelet Volume 11.6 FL (9.6-12.0); Monocytes # 0.7 10*3/uL (0.11-0.8); Monocytes % 15.6 % (1.7-12.7); Neutrophils # 2.6 10*3/uL (1.4-7.4); Neutrophils % 56.4 % (38.7-73.9); Platelet Count 200 T/CUMM (130-400); Red Blood Count 3.74 MC/CUMM (3.8-5.5); Red Cell Distribution Width 15.4 % (9.3-17.3); White Blood Count 4.6 T/CUMM (4-12)
[2016-11-22] MEDS: DEXT 5% NACL 0.45% KCL 20 MEQ 20 MEQ/1,000 ML BAG IV SCH (07:37)
[2016-11-22 07:45] LABS: Albumin 2.7 G/DL (3.4-5.0); Bilirubin,Total 0.7 MG/DL (0.2-1.0); Calcium 6.4 MG/DL (8.5-10.1); Magnesium 1.1 MG/DL (1.8-2.4); Total Protein 6.5 G/DL (6.4-8.3)
[2016-11-22 07:46] LABS: Osmolality,Calculated 287.8 MOS/KG (273-304); Potassium 3.6 MMOL/L (3.5-5.1)
[2016-11-22 07:57] LABS: Eosinophils 2 % (0-10); Lymphocytes 22 % (20-55); Segmented Neutrophils 60 % (50-85); Total Cells Counted 100
[2016-11-22 07:58] LABS: Giant Platelets Few; Hypochromasia 1+; Microcytosis Slight; Ovalocytes Slight; Platelet Estimate Adequate
[2016-11-22] MEDS ORDERED: MAGNESIUM SULF RIDER 2 GM in PREMIX 1 EACH IV ONE (08:00)
[2016-11-22] MEDS ORDERED: HYOSCYAMINE 0.125 MG TABLET PO ONE (08:00)
[2016-11-22] MEDS ORDERED: HYOSCYAMINE 0.125 MG TABLET PO PRN (08:00)
--- NOTE | 2016-11-22 08:03 | Oncology Progress Note ---
Assessment and Plan (1) Hypokalemia Status: Acute Current Visit: Yes (2) Metabolic acidosis Status: Acute Current Visit: Yes (3) Hypomagnesemia Status: Acute Current Visit: Yes (4) Multiple myeloma Status: Acute Current Visit: Yes (5) Nausea vomiting and diarrhea Status: Acute Current Visit: Yes (6) Abdominal pain Status: Acute Current Visit: Yes (7) Chronic renal failure Status: Acute Current Visit: Yes (8) Acute pancreatitis Status: Acute Current Visit: Yes Oncology Subjective PN Interval history: Ms. Fuentes is now experiencing severe abdominal cramping. Her lipase level remains within normal range at 223. She was only able to tolerate very little Jell-O yesterday. Her diarrhea has improved. They are able to get a stool sample this morning to test for C. difficile. Her magnesium level still remains low at 1.1 so we will replace this with IV magnesium. I will obtain a CT scan with IV contrast only today to evaluate her abdominal pain. I do not think she would tolerate p.o. contrast. Her CBC is stable. I do not think her current issues are related to her malignancy. Exam - Constitutional Vitals: Period Temp Pulse Resp BP Sys/Miller Pulse Ox Last 24 Hr 96.1 F-97.6 F 70-85 18-20 136-182/71-91 92-97 General appearance: normal weight, mild distress - Head Head Exam: Present: normocephalic, atraumatic - Eye Eye Exam: Present: EOMI Pupils: Present: PERRL - ENT ENT exam: Present: normal exam, normal oropharynx - Neck Neck exam: Absent: lymphadenopathy, thyromegaly - Respiratory Respiratory exam: Present: CTAB. Absent: wheezes - Cardiovascular Cardiovascular exam: Present: RRR. Absent: JVD, systolic murmur - GI/Abdominal GI/Abdominal exam: Present: hypoactive bowel sounds, tenderness, soft. Absent: ascites, distended, firm, mass - Neurological Exam Neurological exam: Present: alert, oriented X3 - Psychiatric Psychiatric exam: Present: normal affect, normal mood - Skin Skin exam: Present: warm, dry Results - Labs CBC & BMP: 11/22/16 06:45 11/22/16 06:45 Lab Results: I have reviewed the past 24 hour labs
[2016-11-22] MEDS: ENOXAPARIN 30 MG/0.3 ML SYRINGE SUBCUT SCH (09:24)
[2016-11-22] MEDS: INSULIN LISPRO 100 UNIT/ML SUBCUT SCH ×2 (09:25→17:34)
--- NOTE | 2016-11-22 09:33 | CT Report ---
Exam: CT abdomen and pelvis with intravenous contrast Exam date: November 22, 2016 0846 hours Clinical History: 65-year-old female with generalized abdominal pain Technique: Axial computed tomography images of the abdomen and pelvis with intravenous contrast. All CT scans at this facility use one or more dose reduction techniques. Automated exposure control, MA/KV adjustment per patient size (including targeted exam Square dose is matched to indication) or iterative reconstruction technique Contrast: 100 mL of Omnipaque 350 administered intravenously Comparison: No relevant prior studies Findings: Lower thorax: No acute pathologic findings at the lung bases Abdomen: Liver: Unremarkable with note made subcentimeter hemangioma/cyst within the right hepatic lobe Gallbladder and bile ducts: Prior cholecystectomy Pancreas: Pancreas is normal. Spleen: Spleen is normal. Adrenals: No adrenal mass. Kidneys and ureters: Kidneys are normal in size, morphology and enhancement. No hydronephrosis. No ureteral calculus. Stomach and bowel: Question mild colonic wall thickening with increased mucosal enhancement throughout the large and small bowel. Fluid within nondistended loops of large and small bowel throughout the abdomen. No bowel obstruction. Appendix: Unremarkable. No primary or secondary signs to suggest appendicitis. Pelvis: Bladder: Unremarkable Reproductive: Prior hysterectomy. Abdomen and pelvis: Intraperitoneal space: No pneumoperitoneum. No significant intraperitoneal fluid Bones/joints: No acute osseous abnormality. Extensive postoperative changes throughout the thoracolumbar spine with multilevel laminectomies and. Spinal rods stabilize the thoracolumbar spine Soft tissues: No mass Vasculature: No aortic aneurysm Lymph nodes: No adenopathy Impression: 1. Mucosal enhancement throughout the large and small bowel question mild thickening of the colon. Findings are nonspecific and may represent early changes of enterocolitis 2. Other incidental findings as discussed above PROCEDURE INTERPRETED AT [facility] DEPARTMENT OF RADIOLOGY Final Report Signed by: Bong Nascimento
[2016-11-22] MEDS ORDERED: ALPRAZolam 0.5 MG TABLET PO ONE (10:28)
--- NOTE | 2016-11-22 10:28 | Gastrointestinal Progress Note ---
Assessment and Plan (1) Acute pancreatitis Status: Acute Assessment and plan: 11/22-abdominal pain improved. Episodes of nausea without vomiting continue. Lipase is 223. Tolerating clear liquid diet. CT of abdomen findings noted as below. Repeat C. difficile 2 as well as other stool studies. Plan an addendum to follow Dr. Nathan. 11/21-abdominal pain slowly resolving. Episodes of nausea without vomiting. Lipase is down to normal at this time. Tolerating small amounts of clear liquids. Continue to monitor. Plan an addendum to followed by Dr. Nathan. 11/17-3 week history of abdominal pain, worsened following chemotherapy tx ( Velcade) with findings of elevated lipase, now trending down. Associated complaints of nausea, vomiting and diarrhea, now resolved. KUB noted as below. Hx of C. diff noted. Hx of biliary stenting noted as below. NG tube removed today. Continue to monitor at present time. Plan and addendum to follow by Dr Nathan. Current Visit: Yes Gastroenterology - PN: Subj Interval history: CC: Pancreatitis, abdominal pain Patient is seen, awake and alert lying in bed. Spouse is at bedside. States she is feeling about the same at this time. She is having continued abdominal pain however had a CT of the abdomen this morning with IV contrast with no pancreatic findings and mention of mucosal enhancement in the large and small bowel with questionable thickening of the colon with possible early enterocolitis. Stool studies morning was negative for CDF. She denies any fever or chills. She is having continued nausea but denies any vomiting. Lipase levels are 223. She is having continued diarrhea but does state it is improved today. She is tolerating small amount of clear liquid diet with Jell- O and broth. She is noted to have low magnesium today and this is to be replaced. Abdomen soft, mild tenderness in left upper quadrant. ROS: Denies shortness of the chest pain Exam (Progress Note) - Constitutional Vitals: Period Temp Pulse Resp BP Sys/Miller Pulse Ox Last 24 Hr 96.1 F-97.6 F 70-85 18-20 136-182/71-91 92-97 - Other Additional findings: General appearance: normal weight, no acute distress - Head Head exam: Present: normal inspection, normocephalic - Eye Eye exam: Present: other (Lids and conjunctivae are unremarkable). Absent: scleral icterus - ENT ENT exam: Present: normal exam - Neck Neck exam: Present: normal inspection - Respiratory Respiratory exam: Present: clear to auscultation bilaterally. Absent: rales, rhonchi, wheezes - Cardiovascular Cardiovascular exam: Present: regular rate and rhythm. Absent: diastolic murmur , JVD, systolic murmur - GI/Abdominal GI/Abdominal exam: Present: normal bowel sounds, soft, mild tenderness. Absent : ascites, distended, mass, organomegaly - Extremities Exam Extremities exam: Present: normal inspection, full ROM - Back Exam Back exam: Present: normal inspection - Neurological Exam Neurological exam: Present: alert, oriented X3 - Psychiatric Psychiatric exam: Present: normal affect, normal mood - Skin Skin exam: Present: normal color, warm, dry Results - Labs CBC & BMP: 11/22/16 06:45 11/22/16 06:45 Lab Results: I have reviewed the past 24 hour labs - Diagnostic Findings Procedure: CT Abdomen and Pelvis: report reviewed by me
[2016-11-22] MEDS: PARoxetine 20 MG TABLET PO SCH (10:33)
[2016-11-22] MEDS: METOPROLOL TARTRATE 100 MG TABLET PO SCH (10:42)
[2016-11-22] MEDS: PANTOPRAZOLE 40 MG TABLET PO SCH (10:42)
[2016-11-22] MEDS: ONDANSETRON 4 MG/2 ML VIAL IV PRN (17:28)
[2016-11-22] MEDS: HYDROmorphone 2 MG/1 ML VIAL IV PRN (17:29)
[2016-11-22] MEDS: ALPRAZolam 0.25 MG TABLET PO PRN (21:55)
[2016-11-23 04:20] LABS: Basophils % 0.6 % (0.0-0.8); Eosinophils # 0.2 10*3/uL (0.0-0.87); Eosinophils % 2.7 % (0.00-10.9); Hematocrit 30.6 VOL% (35.7-47.0); Hemoglobin 10.3 GM/DL (12.0-16.0); Immature Granulocytes % 0.3 %; Immature Granulocytes Absolute 0.02 #; Lymphocytes # 1.5 10*3/uL (1.4-4.0); Lymphocytes % 24.3 % (21.3-54.2); Mean Corpuscular HGB Conc 33.7 GM/DL (32-36); Mean Corpuscular Hemoglobin 28 PG (27-34); Mean Corpuscular Volume 84.1 FL (87-102); Mean Platelet Volume 11.7 FL (9.6-12.0); Monocytes # 0.9 10*3/uL (0.11-0.8); Neutrophils # 3.6 10*3/uL (1.4-7.4); Neutrophils % 58.1 % (38.7-73.9); Platelet Count 231 T/CUMM (130-400); Red Blood Count 3.64 MC/CUMM (3.8-5.5); Red Cell Distribution Width 15.4 % (9.3-17.3); White Blood Count 6.2 T/CUMM (4-12)
[2016-11-23 04:55] LABS: Albumin 2.7 G/DL (3.4-5.0); Bilirubin,Total 0.7 MG/DL (0.2-1.0); Calcium 6.2 MG/DL (8.5-10.1); Potassium 2.7 MMOL/L (3.5-5.1); Total Protein 6.3 G/DL (6.4-8.3)
[2016-11-23 05:25] LABS: Band Neutrophils 1 % (0-10); Eosinophils 4 % (0-10); Lymphocytes 31 % (20-55); Myelocytes 1 %; Platelet Estimate Normal; Segmented Neutrophils 59 % (50-85); Total Cells Counted 100
[2016-11-23] MEDS: DEXT 5% NACL 0.45% KCL 20 MEQ 20 MEQ/1,000 ML BAG IV SCH (06:44)
--- NOTE | 2016-11-23 07:37 | Oncology Progress Note ---
Assessment and Plan - Time spent with patient Time spent with patient: Greater than 30 minutes (1) Hypokalemia Status: Acute Current Visit: Yes (2) Metabolic acidosis Status: Acute Current Visit: Yes (3) Hypomagnesemia Status: Acute Current Visit: Yes (4) Multiple myeloma Status: Acute Current Visit: Yes (5) Nausea vomiting and diarrhea Status: Acute Current Visit: Yes (6) Abdominal pain Status: Acute Current Visit: Yes (7) Chronic renal failure Status: Acute Current Visit: Yes (8) Acute pancreatitis Status: Acute Current Visit: Yes (9) Enterocolitis Status: Acute Current Visit: Yes Oncology Subjective PN Interval history: Ms. Fuentes is a 65-year-old white female with multiple myeloma initially admitted with pancreatitis and now appears to have some type of colitis. She underwent a CT scan yesterday that showed no acute abnormal findings other than diffuse swelling and edematous changes throughout her small and large intestine consistent with enterocolitis. Her pancreas did not show any evidence of inflammation or necrosis. She still having significant diarrhea. We discussed empirically starting her on Flagyl today even though her C. difficile was negative. She is not ambulating much so I encouraged her to get out of bed today. We will consult physical therapy for their assistance. Her potassium level has dropped down to 2.7 and is most likely related to her diarrhea. She already has potassium in her IV fluid but I will give her additional potassium parenterally. Her magnesium level was not checked with her morning labs I will add this today because anticipate that this will likely need replacing as well. We are still taking small baby steps forward and hopefully she will continue to improve to the point where she can be discharged in the next few days. Her CBC is stable. Her creatinine is improved significantly since admission. Exam - Constitutional Vitals: Period Temp Pulse Resp BP Sys/Miller Pulse Ox Last 24 Hr 96 F-97.2 F 67-75 12-20 119-132/59-78 93-94 General appearance: normal weight, no acute distress - Head Head Exam: Present: normocephalic, atraumatic - Eye Eye Exam: Present: EOMI Pupils: Present: PERRL - ENT ENT exam: Present: normal exam, normal oropharynx - Neck Neck exam: Absent: lymphadenopathy, thyromegaly - Respiratory Respiratory exam: Present: CTAB. Absent: wheezes - Cardiovascular Cardiovascular exam: Present: RRR. Absent: JVD, systolic murmur - GI/Abdominal GI/Abdominal exam: Present: hypoactive bowel sounds, tenderness. Absent: ascites, distended, firm, mass, soft - Neurological Exam Neurological exam: Present: alert, oriented X3 - Psychiatric Psychiatric exam: Present: normal affect, normal mood - Skin Skin exam: Present: warm, dry Results - Labs CBC & BMP: 11/23/16 03:57 11/23/16 03:57 Lab Results: I have reviewed the past 24 hour labs
[2016-11-23] MEDS: PANTOPRAZOLE 40 MG TABLET PO SCH (08:39)
[2016-11-23] MEDS: PARoxetine 20 MG TABLET PO SCH (08:39)
[2016-11-23] MEDS: metroNIDAZOLE INJ 500 MG in PREMIX 1 EACH IV SCH ×2 (08:39→16:54)
[2016-11-23] MEDS: INSULIN LISPRO 100 UNIT/ML SUBCUT SCH ×2 (08:39→16:19)
[2016-11-23] MEDS: ENOXAPARIN 30 MG/0.3 ML SYRINGE SUBCUT SCH (08:40)
[2016-11-23] MEDS: METOPROLOL TARTRATE 100 MG TABLET PO SCH (08:40)
--- NOTE | 2016-11-23 10:21 | Gastrointestinal Progress Note ---
Assessment and Plan (1) Acute pancreatitis Status: Acute Assessment and plan: 11/23-Abd pain improved, diarrhea overnight but improved today. Tolerating diet. Repeat C. diff results pending. Continue to monitor. Plan and addendum to follow by Dr Nathan. 11/22-abdominal pain improved. Episodes of nausea without vomiting continue. Lipase is 223. Tolerating clear liquid diet. CT of abdomen findings noted as below. Repeat C. difficile 2 as well as other stool studies. Plan an addendum to follow Dr. Nathan. 11/21-abdominal pain slowly resolving. Episodes of nausea without vomiting. Lipase is down to normal at this time. Tolerating small amounts of clear liquids. Continue to monitor. Plan an addendum to followed by Dr. Nathan. 11/17-3 week history of abdominal pain, worsened following chemotherapy tx ( Velcade) with findings of elevated lipase, now trending down. Associated complaints of nausea, vomiting and diarrhea, now resolved. KUB noted as below. Hx of C. diff noted. Hx of biliary stenting noted as below. NG tube removed today. Continue to monitor at present time. Plan and addendum to follow by Dr Nathan. Current Visit: Yes Gastroenterology - PN: Subj Interval history: CC: Pancreatitis Pt is awake and alert lying in bed. She states that she is feeling better at this time. She did rest well last night however state she did have 2-3 episodes of loose stools but none today. She denies any abdominal pain, nausea or vomiting. Her appetite is improving at this time. Abdomen is soft, nontender. Repeat C. diff stools pending. ROS: Denies SOB or chest pain Exam (Progress Note) - Constitutional Vitals: Period Temp Pulse Resp BP Sys/Miller Pulse Ox Last 24 Hr 96 F-97.2 F 67-71 12-20 119-132/59-78 93-94 - Other Additional findings: General appearance: normal weight, no acute distress - Head Head exam: Present: normal inspection, normocephalic - Eye Eye exam: Present: other (Lids and conjunctivae are unremarkable). Absent: scleral icterus - ENT ENT exam: Present: normal exam - Neck Neck exam: Present: normal inspection - Respiratory Respiratory exam: Present: clear to auscultation bilaterally. Absent: rales, rhonchi, wheezes - Cardiovascular Cardiovascular exam: Present: regular rate and rhythm. Absent: diastolic murmur , JVD, systolic murmur - GI/Abdominal GI/Abdominal exam: Present: normal bowel sounds, soft, mild tenderness. Absent : ascites, distended, mass, organomegaly - Extremities Exam Extremities exam: Present: normal inspection, full ROM - Back Exam Back exam: Present: normal inspection - Neurological Exam Neurological exam: Present: alert, oriented X3 - Psychiatric Psychiatric exam: Present: normal affect, normal mood - Skin Skin exam: Present: normal color, warm, dry Results - Labs CBC & BMP: 11/23/16 03:57 11/23/16 03:57 Lab Results: I have reviewed the past 24 hour labs
[2016-11-23] MEDS: POTASSIUM CHLORIDE RIDER 10 MEQ in PREMIX 1 EACH IV SCH ×4 (11:25→22:41)
[2016-11-23] MEDS: HYDROmorphone 2 MG/1 ML VIAL IV PRN ×2 (14:34→22:39)
[2016-11-23] MEDS: ALPRAZolam 0.25 MG TABLET PO PRN (20:45)
[2016-11-24] MEDS: metroNIDAZOLE INJ 500 MG in PREMIX 1 EACH IV SCH ×3 (02:58→18:00)
[2016-11-24] MEDS: HYDROmorphone 2 MG/1 ML VIAL IV PRN ×5 (03:07→19:59)
[2016-11-24] MEDS: DEXT 5% NACL 0.45% KCL 20 MEQ 20 MEQ/1,000 ML BAG IV SCH ×2 (03:08→09:00)
[2016-11-24 05:27] LABS: Basophils # 0.1 10*3/uL (0.0-0.2); Basophils % 0.9 % (0.0-0.8); Eosinophils # 0.3 10*3/uL (0.0-0.87); Eosinophils % 5.2 % (0.00-10.9); Hematocrit 33.7 VOL% (35.7-47.0); Hemoglobin 10.8 GM/DL (12.0-16.0); Immature Granulocytes % 0.3 %; Immature Granulocytes Absolute 0.02 #; Lymphocytes # 1.5 10*3/uL (1.4-4.0); Lymphocytes % 26.6 % (21.3-54.2); Mean Corpuscular Hemoglobin 28 PG (27-34); Mean Corpuscular Volume 88.7 FL (87-102); Mean Platelet Volume 11.7 FL (9.6-12.0); Monocytes # 0.7 10*3/uL (0.11-0.8); Monocytes % 12.7 % (1.7-12.7); Neutrophils # 3.1 10*3/uL (1.4-7.4); Neutrophils % 54.3 % (38.7-73.9); Platelet Count 240 T/CUMM (130-400); Red Cell Distribution Width 15.7 % (9.3-17.3); White Blood Count 5.8 T/CUMM (4-12)
[2016-11-24 06:06] LABS: Albumin 2.9 G/DL (3.4-5.0); Bilirubin,Total 0.9 MG/DL (0.2-1.0); Calcium 6.4 MG/DL (8.5-10.1); Osmolality,Calculated 285.7 MOS/KG (273-304); Potassium 3.5 MMOL/L (3.5-5.1); Total Protein 6.7 G/DL (6.4-8.3)
[2016-11-24] MEDS: INSULIN LISPRO 100 UNIT/ML SUBCUT SCH ×2 (07:31→17:26)
--- NOTE | 2016-11-24 08:34 | Oncology Progress Note ---
Assessment and Plan - Time spent with patient Time spent with patient: Greater than 30 minutes (1) Hypokalemia Status: Acute Current Visit: Yes (2) Metabolic acidosis Status: Acute Current Visit: Yes (3) Hypomagnesemia Status: Acute Current Visit: Yes (4) Multiple myeloma Status: Acute Current Visit: Yes (5) Nausea vomiting and diarrhea Status: Acute Current Visit: Yes (6) Abdominal pain Status: Acute Current Visit: Yes (7) Chronic renal failure Status: Acute Current Visit: Yes (8) Acute pancreatitis Status: Acute Current Visit: Yes (9) Enterocolitis Status: Acute Current Visit: Yes Oncology Subjective PN Interval history: Ms. Fuentes is a 65-year-old white female with newly diagnosed multiple myeloma who is admitted with pancreatitis that resolved and is currently improving from some type of enterocolitis. I empirically placed her on Flagyl yesterday this is improved her symptoms significantly. She only had one episode of diarrhea last night. She states she feels much better and about the mancera yesterday. Her CBC is stable. Her potassium is improved as well. She remains mildly hypomagnesemic and I will replace this today. I think she stand the hospital for at least 1 more day to advance her diet further to make sure she tolerates good p.o. intake. Hopefully we can get have her discharged home tomorrow or the next day. I encouraged her to ambulate the hallway 2-3 times a day. Also encouraged her to sit in the chair more than lying in bed today. When she is discharged she should just keep her next appointment with me for follow-up. I am likely going to change her Velcade to p.o. Revlimid from this point forward. Exam - Constitutional Vitals: Period Temp Pulse Resp BP Sys/Miller Pulse Ox Last 24 Hr 96.3 F-97.2 F 63-80 18-20 131-189/62-91 92-96 General appearance: normal weight, no acute distress - Head Head Exam: Present: normocephalic, atraumatic - Eye Eye Exam: Present: EOMI Pupils: Present: PERRL - ENT ENT exam: Present: normal exam, normal oropharynx - Neck Neck exam: Absent: lymphadenopathy, thyromegaly - Respiratory Respiratory exam: Present: CTAB. Absent: wheezes - Cardiovascular Cardiovascular exam: Present: RRR. Absent: JVD, systolic murmur - GI/Abdominal GI/Abdominal exam: Present: soft. Absent: ascites, distended, firm, mass - Neurological Exam Neurological exam: Present: alert, oriented X3 - Psychiatric Psychiatric exam: Present: normal affect, normal mood - Skin Skin exam: Present: warm, dry Results - Labs CBC & BMP: 11/24/16 04:19 11/24/16 04:19 Lab Results: I have reviewed the past 24 hour labs
[2016-11-24] MEDS: ENOXAPARIN 30 MG/0.3 ML SYRINGE SUBCUT SCH (08:59)
[2016-11-24] MEDS: METOPROLOL TARTRATE 100 MG TABLET PO SCH (08:59)
[2016-11-24] MEDS: PARoxetine 20 MG TABLET PO SCH (08:59)
[2016-11-24] MEDS: PANTOPRAZOLE 40 MG TABLET PO SCH (08:59)
--- NOTE | 2016-11-24 09:29 | Gastrointestinal Progress Note ---
Assessment and Plan (1) Acute pancreatitis Status: Acute Assessment and plan: 11/24-no complaints of abdominal pain. Diarrhea improved. Stool studies negative. Advance to full liquid diet (this was noted to be ordered yesterday however still receiving clear liquids). Plan an addendum to followed by Dr. Nathan. 11/23-Abd pain improved, diarrhea overnight but improved today. Tolerating diet. Repeat C. diff results pending. Continue to monitor. Plan and addendum to follow by Dr Nathan. 11/22-abdominal pain improved. Episodes of nausea without vomiting continue. Lipase is 223. Tolerating clear liquid diet. CT of abdomen findings noted as below. Repeat C. difficile 2 as well as other stool studies. Plan an addendum to follow Dr. Nathan. 11/21-abdominal pain slowly resolving. Episodes of nausea without vomiting. Lipase is down to normal at this time. Tolerating small amounts of clear liquids. Continue to monitor. Plan an addendum to followed by Dr. Nathan. 11/17-3 week history of abdominal pain, worsened following chemotherapy tx ( Velcade) with findings of elevated lipase, now trending down. Associated complaints of nausea, vomiting and diarrhea, now resolved. KUB noted as below. Hx of C. diff noted. Hx of biliary stenting noted as below. NG tube removed today. Continue to monitor at present time. Plan and addendum to follow by Dr Nathan. Current Visit: Yes Gastroenterology - PN: Subj Interval history: CC: Pancreatitis Patient is seen, awake and alert, sitting on side of the bed with spouse at bedside. States that she is feeling much better today. She denies any abdominal pain, nausea or vomiting. She is tolerating her diet at this time and states she would like to try to advance this. She has not had any diarrhea overnight. Abdomen is soft, nontender. Stool studies are all noted to be negative at this time with Clostridium difficile 2 negative. ROS: Denies shortness breath or chest pain Exam (Progress Note) - Constitutional Vitals: Period Temp Pulse Resp BP Sys/Miller Pulse Ox Last 24 Hr 96.3 F-97.2 F 63-80 18-20 131-189/62-91 92-96 - Other Additional findings: General appearance: normal weight, no acute distress - Head Head exam: Present: normal inspection, normocephalic - Eye Eye exam: Present: other (Lids and conjunctivae are unremarkable). Absent: scleral icterus - ENT ENT exam: Present: normal exam - Neck Neck exam: Present: normal inspection - Respiratory Respiratory exam: Present: clear to auscultation bilaterally. Absent: rales, rhonchi, wheezes - Cardiovascular Cardiovascular exam: Present: regular rate and rhythm. Absent: diastolic murmur , JVD, systolic murmur - GI/Abdominal GI/Abdominal exam: Present: normal bowel sounds, soft, mild tenderness. Absent : ascites, distended, mass, organomegaly - Extremities Exam Extremities exam: Present: normal inspection, full ROM - Back Exam Back exam: Present: normal inspection - Neurological Exam Neurological exam: Present: alert, oriented X3 - Psychiatric Psychiatric exam: Present: normal affect, normal mood - Skin Skin exam: Present: normal color, warm, dry Results - Labs CBC & BMP: 11/24/16 04:19 11/24/16 04:19 Lab Results: I have reviewed the past 24 hour labs
[2016-11-24] MEDS ORDERED: MAGNESIUM SULF RIDER 2 GM in PREMIX 1 EACH IV ONE (10:11)
[2016-11-24] MEDS: ALPRAZolam 0.25 MG TABLET PO PRN (19:59)
[2016-11-25] MEDS: metroNIDAZOLE INJ 500 MG in PREMIX 1 EACH IV SCH ×2 (03:45→15:06)
[2016-11-25] MEDS: HYDROmorphone 2 MG/1 ML VIAL IV PRN ×6 (05:03→20:49)
[2016-11-25] MEDS: PROMETHAZINE INJ 25 MG in SODIUM CHLORIDE 0.9% 50 ML IV PRN (05:03)
[2016-11-25 06:08] LABS: Basophils # 0.1 10*3/uL (0.0-0.2); Basophils % 0.9 % (0.0-0.8); Eosinophils # 0.3 10*3/uL (0.0-0.87); Eosinophils % 4.4 % (0.00-10.9); Hematocrit 33.1 VOL% (35.7-47.0); Hemoglobin 10.6 GM/DL (12.0-16.0); Immature Granulocytes % 0.4 %; Immature Granulocytes Absolute 0.02 #; Lymphocytes # 1.1 10*3/uL (1.4-4.0); Lymphocytes % 20.3 % (21.3-54.2); Mean Corpuscular Hemoglobin 29 PG (27-34); Mean Platelet Volume 12.6 FL (9.6-12.0); Monocytes # 0.7 10*3/uL (0.11-0.8); Monocytes % 12.3 % (1.7-12.7); Neutrophils # 3.5 10*3/uL (1.4-7.4); Neutrophils % 61.7 % (38.7-73.9); Platelet Count 175 T/CUMM (130-400); Red Blood Count 3.72 MC/CUMM (3.8-5.5); Red Cell Distribution Width 15.9 % (9.3-17.3); White Blood Count 5.6 T/CUMM (4-12)
[2016-11-25 06:30] LABS: Hypochromasia 1+; Microcytosis 1+
[2016-11-25 06:31] LABS: Platelet Estimate Adequate
[2016-11-25 06:45] LABS: Albumin 2.7 G/DL (3.4-5.0); Bilirubin,Total 0.7 MG/DL (0.2-1.0); Osmolality,Calculated 288.7 MOS/KG (273-304); Potassium 4.3 MMOL/L (3.5-5.1); Total Protein 6.5 G/DL (6.4-8.3)
[2016-11-25] MEDS: INSULIN LISPRO 100 UNIT/ML SUBCUT SCH ×2 (08:16→16:14)
[2016-11-25] MEDS: DEXT 5% NACL 0.45% KCL 20 MEQ 20 MEQ/1,000 ML BAG IV SCH (08:16)
[2016-11-25] MEDS: PANTOPRAZOLE 40 MG TABLET PO SCH (10:20)
[2016-11-25] MEDS: PARoxetine 20 MG TABLET PO SCH (10:20)
[2016-11-25] MEDS: METOPROLOL TARTRATE 100 MG TABLET PO SCH (10:21)
--- NOTE | 2016-11-25 10:29 | Oncology Progress Note ---
Assessment and Plan (1) Multiple myeloma Status: Chronic Assessment and plan: On Velcade/Dex with admission now for presumed Velcade-induced pancreatitis -- will f/u with Dr. Enriquez once discharged to resume myeloma therapy Current Visit: Yes Qualifiers: Multiple myeloma remission status: not in remission Qualified Code(s): C90.00 - Multiple myeloma not having achieved remission (2) Acute pancreatitis Status: Acute Assessment and plan: Last lipase 226 on 11/22 (down from >900 on admission). Calcium normal. Tolerating liquid diet. -- will advance to solid diet for lunch. Will go back to liquids if not tolerated Current Visit: Yes (3) Enterocolitis Status: Acute Assessment and plan: Diarrhea persists, though sounds improved. Stool C.diff and culture negative - continue empiric Flagyl Current Visit: Yes (4) Acute on chronic renal failure Status: Acute Assessment and plan: Continues to improve with hydration. Current Visit: Yes Qualifiers: Chronic kidney disease stage: unspecified stage Oncology Subjective PN Interval history: Brief History: - 65 yo with relatively newly diagnosed myeloma on Velcade/Dex admitted with presumed Velcade-induced pancreatitis. Course complicated with development of enterocolitis. - Feeling well this am. Abdominal pain is improving. States she did have diarrhea several times yesterday. Walked the hallway yesterday with her . Advanced to full liquid diet yesterday and tolerated ok. Took a few bites of oatmeal this am and did not feel well enough to finish. - had diarrhea once this am. - wants to try solid food for lunch today Exam - Constitutional Vitals: Period Temp Pulse Resp BP Sys/Miller Pulse Ox Last 24 Hr 96.3 F-98.0 F 67-80 16-20 117-143/61-70 92-97 Exam: Middle aged, overweight and chronically ill appearing white female, looks to feel well - Eye Eye Exam: Present: other (pink palpebral conjunctiva). Absent: scleral icterus - Respiratory Respiratory exam: Present: other (normal rate and effort on RA without conversational dyspnea) - Cardiovascular Cardiovascular exam: Present: RRR. Absent: JVD - GI/Abdominal GI/Abdominal exam: Present: tenderness (tender to palpation of left side of abdomen), soft - Extremities Exam Extremities exam: Absent: edema - Skin Skin exam: Present: warm, dry Results - Labs CBC & BMP: 11/25/16 05:41 11/25/16 05:41
[2016-11-25] MEDS: ENOXAPARIN 40 MG/0.4 ML SYRINGE SUBCUT SCH (10:36)
[2016-11-25] MEDS: ONDANSETRON 4 MG/2 ML VIAL IV PRN (18:22)
[2016-11-25] MEDS: ALPRAZolam 0.25 MG TABLET PO PRN (20:48)
[2016-11-26] MEDS: metroNIDAZOLE INJ 500 MG in PREMIX 1 EACH IV SCH ×3 (00:56→16:11)
[2016-11-26] MEDS: HYDROmorphone 2 MG/1 ML VIAL IV PRN ×6 (02:26→17:57)
[2016-11-26 03:41] LABS: Basophils # 0.1 10*3/uL (0.0-0.2); Basophils % 1.1 % (0.0-0.8); Eosinophils # 0.3 10*3/uL (0.0-0.87); Eosinophils % 4.6 % (0.00-10.9); Hematocrit 30.3 VOL% (35.7-47.0); Hemoglobin 9.6 GM/DL (12.0-16.0); Immature Granulocytes % 0.2 %; Immature Granulocytes Absolute 0.01 #; Lymphocytes # 1.7 10*3/uL (1.4-4.0); Lymphocytes % 30.4 % (21.3-54.2); Mean Corpuscular HGB Conc 31.7 GM/DL (32-36); Mean Corpuscular Hemoglobin 29 PG (27-34); Mean Corpuscular Volume 89.9 FL (87-102); Monocytes # 0.7 10*3/uL (0.11-0.8); Monocytes % 12.3 % (1.7-12.7); Neutrophils # 2.9 10*3/uL (1.4-7.4); Neutrophils % 51.4 % (38.7-73.9); Platelet Count 242 T/CUMM (130-400); Red Blood Count 3.37 MC/CUMM (3.8-5.5); Red Cell Distribution Width 15.9 % (9.3-17.3); White Blood Count 5.6 T/CUMM (4-12)
[2016-11-26 04:52] LABS: Albumin 2.7 G/DL (3.4-5.0); Calcium 7.2 MG/DL (8.5-10.1); Total Protein 6.2 G/DL (6.4-8.3)
[2016-11-26] MEDS ORDERED: PROMETHAZINE 25 MG/1 ML VIAL ONE (05:31)
[2016-11-26] MEDS: PROMETHAZINE INJ 25 MG in SODIUM CHLORIDE 0.9% 50 ML IV PRN (05:35)
[2016-11-26] MEDS ORDERED: POTASSIUM CHLORIDE IV SCH (08:00)
[2016-11-26] MEDS ORDERED: [UNRECOGNIZED DRUG - OTHER] IV SCH (08:00)
[2016-11-26] MEDS ORDERED: MAGNESIUM SULF IV SCH (08:00)
[2016-11-26] MEDS ORDERED: MAGNESIUM OXIDE 400 MG TABLET PO SCH (09:00)
[2016-11-26] MEDS ORDERED: MAGNESIUM LACTATE PO SCH (09:00)
[2016-11-26] MEDS: ONDANSETRON 4 MG/2 ML VIAL IV PRN ×2 (09:01→14:31)
[2016-11-26] MEDS: INSULIN LISPRO 100 UNIT/ML SUBCUT SCH ×2 (09:08→16:33)
[2016-11-26] MEDS: ENOXAPARIN 40 MG/0.4 ML SYRINGE SUBCUT SCH (09:10)
--- NOTE | 2016-11-26 09:17 | Oncology Progress Note ---
Assessment and Plan (1) Multiple myeloma Status: Chronic Assessment and plan: On Velcade/Dex with admission now for presumed Velcade-induced pancreatitis -- will f/u with Dr. Enriquez once discharged to resume myeloma therapy Current Visit: Yes Qualifiers: Multiple myeloma remission status: not in remission Qualified Code(s): C90.00 - Multiple myeloma not having achieved remission (2) Acute pancreatitis Status: Acute Assessment and plan: tolerated solid diet yesterday and this am. - anticipating discharge today Current Visit: Yes (3) Enterocolitis Status: Acute Assessment and plan: Diarrhea resolved. Stool C.diff and culture negative - will give empiric 10 day course of Flagyl 500 mg TID Current Visit: Yes (4) Acute on chronic renal failure Status: Acute Assessment and plan: Much improved with hydration (3.9 on admission) to 1.7 today. Current Visit: Yes Qualifiers: Chronic kidney disease stage: unspecified stage (5) Hypomagnesemia Status: Acute Assessment and plan: Suspect all due to the diarrhea she had. - 2 gram IV today with 400 mg PO Mag Oxide BID starting today - will send home with a week of PO supplementation Current Visit: Yes Oncology Subjective PN Interval history: Brief History: - 65 yo with myeloma recently started on Velcade/Dex, admitted now since 11/14 with presumed Velcade-induced pancreatitis. Course complicated with development of culture-negative enterocolitis. Interval History: - feeling improved today. - walked with rollator with 's assistance yesterday - tolerated solid diet for lunch and dinner yesterday and breakfast this am. - abdominal pain improved to only mild, intermittent cramping - diarrhea resolved. Had one bout yesterday am and none since. Exam - Constitutional Vitals: Period Temp Pulse Resp BP Sys/Miller Pulse Ox Last 24 Hr 96.1 F-97.4 F 76-84 16-20 142-167/67-72 91-96 Exam: Middle aged, overweight and chronically ill appearing white female, looks to be feeling improved this am - Eye Eye Exam: Absent: conjunctival injection, scleral icterus - Respiratory Respiratory exam: Present: CTAB, other (normal rate and effort without conversational dypsnea on ambient air) - Cardiovascular Cardiovascular exam: Present: RRR. Absent: JVD - GI/Abdominal GI/Abdominal exam: Present: soft. Absent: tenderness - Extremities Exam Extremities exam: Absent: edema - Neurological Exam Neurological exam: Present: alert - Psychiatric Psychiatric exam: Present: normal affect, normal mood - Skin Skin exam: Present: warm, dry Results - Labs CBC & BMP: 11/26/16 02:07 11/26/16 02:07 Labs: Magnesium 1.0
[2016-11-26] MEDS: PARoxetine 20 MG TABLET PO SCH (10:01)
[2016-11-26] MEDS: PANTOPRAZOLE 40 MG TABLET PO SCH (10:02)
[2016-11-26] MEDS: METOPROLOL TARTRATE 100 MG TABLET PO SCH (10:02)
[2016-11-26] MEDS: ALPRAZolam 0.25 MG TABLET PO PRN ×2 (11:43→18:03)
--- NOTE | 2016-11-26 16:11 | Discharge Summary ---
Hospital Course - Hospital Course Hospital Course: Mrs. Fuentes was admitted for presumed Velcade-induced pancreatitis with [id number] on CKD. She was treated with aggressive IV hydration and analgesics and bowel rest with a downward trend of her lipase from > 900 to 229. She subsequently developed a culture and C.diff PCR negative enterocolitis. She improved on empiric Flagyl with continued bowel rest and hydration. Diet was slowly advanced to solids as of 11/25/16 with good tolerance. She was ambulating around the hallways with the aid of her and her rollator. Diarrhea has resolved. She has required magnesium replacement for presumed diarrhea-induced hypomagnesemia. She has been deemed stable and suitable to discharge. She will continue on PO Flagyl for an additional 7 day course. In addition to this, she will continue on magnesium supplementation. She has a scheduled follow up with Dr. Enriquez already in place. - Time spent with patient Time with patient DS: Less than 30 minutes Diagnosis - Discharge Diagnosis (1) Multiple myeloma Status: Chronic (2) Acute pancreatitis Status: Acute (3) Enterocolitis Status: Acute (4) Acute on chronic renal failure Status: Acute (5) Hypomagnesemia Status: Acute Specialty Discharge - Follow Up or Referrals - Speciality Discharge Instructions Oncology Instructions: Follow up with Dr. Enriquez as directed. - Start taking PO Flagyl 500 mg three times daily for next 7 days. - start taking Magnesium Oxide twice daily for next 7 days Discharge Plan - Discharge Data Disposition: Home Health Service Condition at Discharge: Stable Discharge Diet: diabetic diet Activity: ambulate only with your walker, as per physical therapy, increase activity as tolerated Hygiene: no restrictions Contact your physician if you experience:: fever over 101, Difficulty voiding, pain uncontrolled by pain medications - Discharge Medications New [place]NIDAZOLE TAB [Flagyl Cap/Tab] 500 mg PO TID #21 tablet Magnesium Oxide 400 mg PO BID #14 tablet Continue Atorvastatin [Lipitor] 20 mg PO DAILY Omeprazole 40 mg PO QAM PARoxetine HCl [Paroxetine HCl] 40 mg PO QAM Oxycodone HCl/Acetaminophen [Oxycodone-Acetaminophen 10-325] 1 tablet PO Q6H PRN PRN Reason: Pain Ondansetron HCl 8 mg PO Q6H PRN PRN Reason: Nausea/Vomiting Metoprolol Tartrate 100 mg PO QAM Gabapentin 800 mg PO QID Fenofibrate 160 mg PO DAILY ALPRAZolam [Alprazolam] 1 mg PO DAILY PRN PRN Reason: Anxiety Insulin Aspart [NovoLOG FlexPen] 7 unit SUBCUT QPM Aspirin EC Tab 81 mg PO QAM Insulin Degludec [Tresiba Flextouch U-200] 30 - 45 unit SUBCUT QAM Promethazine Tab [Phenergan Tab] 25 mg PO Q8H Triamterene/Hydrochlorothiazid [Triamterene-Hctz 37.5-25 mg Tb] 1 each PO QAM - Follow Up or Referral - Forms/Instructions Exam - Constitutional Vitals: Period Temp Pulse Resp BP Sys/Miller Pulse Ox Last 24 Hr 96.1 F-98.3 F 77-84 16-20 142-166/69-83 92-97 Exam: Middle aged, obese and chronically ill appearing white female lying back in bed comfortably - Eye Eye exam: Absent: conjunctival injection, scleral icterus - Respiratory Respiratory exam: Present: other (normal rate and effort without conversational dyspnea while breathing ambient air) - Cardiovascular Cardiovascular exam: Present: other (RRR; JVP normal. No peripheral edema) - GI/Abdominal GI/Abdominal exam: Present: soft. Absent: tenderness - Extremities Exam Extremities exam: Absent: edema - Neurological Exam Neurological exam: Present: alert, oriented X3 - Psychiatric Psychiatric exam: Present: normal affect, anxious - Skin Skin exam: Present: warm, dry Discharge Results Labs on day of discharge: Labs from last 24 hours 11/26/16 11/26/16 11/26/16 13:49 07:30 02:07 WBC RBC Hgb Hct MCV MCH MCHC RDW Plt Count MPV Neut % (Auto) Lymph % (Auto) Perry % (Auto) Eos % (Auto) Baso % (Auto) Neut # (Auto) Lymph # (Auto) Perry # (Auto) Eos # (Auto) Baso # (Auto) Immature Gran % Nucleated RBC % Immature Gran # Nucleated RBCs # Immature Plt Fraction Sodium 143 Potassium 4.0 Chloride 114 H Carbon Dioxide 23 Anion Gap 10.0 BUN 8 Creatinine 1.70 H GFR Calculation 32 BUN/Creatinine Ratio 4.00 L Glucose 107 H POC Glucose 143 H 181 H Calculated Osmolality 282.0 Calcium 7.2 L Magnesium 1.0 L Total Bilirubin 1.00 AST 18 ALT 18 Alkaline Phosphatase 303 H Total Protein 6.2 L Albumin 2.7 L Globulin 3.5 Albumin/Globulin Ratio 0.7 L Lipase 11/26/16 11/26/16 11/25/16 02:07 02:07 15:58 WBC 5.6 RBC 3.37 L Hgb 9.6 L Hct 30.3 L MCV 89.9 MCH 29 MCHC 31.7 L RDW 15.9 Plt Count 242 D MPV 12.0 Neut % (Auto) 51.4 Lymph % (Auto) 30.4 Perry % (Auto) 12.3 Eos % (Auto) 4.6 Baso % (Auto) 1.1 H Neut # (Auto) 2.9 Lymph # (Auto) 1.7 Perry # (Auto) 0.7 Eos # (Auto) 0.3 Baso # (Auto) 0.1 Immature Gran % 0.2 Nucleated RBC % 0.0 Immature Gran # 0.01 Nucleated RBCs # 0.00 Immature Plt Fraction 0.0 Sodium Potassium Chloride Carbon Dioxide Anion Gap BUN Creatinine GFR Calculation BUN/Creatinine Ratio Glucose POC Glucose 104 Calculated Osmolality Calcium Magnesium Total Bilirubin AST ALT Alkaline Phosphatase Total Protein Albumin Globulin Albumin/Globulin Ratio Lipase 294.0 D 11/25/16 05:41 WBC RBC Hgb Hct MCV MCH MCHC RDW Plt Count MPV Neut % (Auto) Lymph % (Auto) Perry % (Auto) Eos % (Auto) Baso % (Auto) Neut # (Auto) Lymph # (Auto) Perry # (Auto) Eos # (Auto) Baso # (Auto) Immature Gran % Nucleated RBC % Immature Gran # Nucleated RBCs # Immature Plt Fraction Sodium 145 Potassium 4.3 Chloride 115 H Carbon Dioxide 20 L Anion Gap 14.3 BUN 7 Creatinine 1.40 H GFR Calculation 40 BUN/Creatinine Ratio 5.00 L Glucose 157 H POC Glucose Calculated Osmolality 288.7 Calcium 7.0 L Magnesium Cancelled Total Bilirubin 0.70 AST 22 ALT 16 Alkaline Phosphatase 289 H Total Protein 6.5 Albumin 2.7 L Globulin 3.8 H Albumin/Globulin Ratio 0.7 L Lipase DS: Provider Date of admission: 11/15/16 07:56 Primary care physician: Jorje Enriquez MD Attending physician on admission: Jorje Enriquez MD Consults: 11/14/16 18:52 Consult to Dietitian [CONS] Routine Reason for Dietitian: Dietary Consult 11/17/16 10:38 Consult to Physician [CONS] Routine Comment: pancreatitis Consulting Provider: Brian Nathan Consulting Provider Notified: Yes When should Consulting Provider be notified: Now Consult to Specialist Group: Gastroenterology When should Consulting Provider be notified: Now Person Notified: LORELEI Date Notified: 11/17/16 Time Notified: 11:05 11/23/16 07:33 Consult to Physical Therapy [CONS] Routine Reason for Physical Therapy: Evaluate and Treat 11/23/16 14:01 Consult to Case Mgmt/Social Srvs [CONS] Routine Reason for Case Mgmt/Social Srvs: Home Health Consult Comment: Needs RN and Aid to assist with bathing Discharging clinician: Shailesh Duncan MD
[2016-11-26 17:27] VITALS: BP 158/85
== END 2016-11-26 18:50 | disposition home health service (06) | DRG 439 ==
LOC: EDBD → EDUNIT# → N.EDINP 14:35 → N.ED 14:35 → N.4E 18:24
PROVIDERS: ADMIT Specialist; ATTEND Specialist

== ENCOUNTER 2017-03-01 01:55 | Inpatient (IN) ==
[2017-03-01] MEDS ORDERED: SODIUM CHLORIDE 0.9% 1,000 ML IV STA (02:08)
[2017-03-01] MEDS ORDERED: ONDANSETRON 4 MG/2 ML VIAL IV STA (02:08)
[2017-03-01] MEDS ORDERED: fentaNYL 100 MCG/2 ML VIAL IV STA (02:09)
[2017-03-01] MEDS ORDERED: fentaNYL 100 MCG/2 ML VIAL ONE (02:30)
[2017-03-01] MEDS ORDERED: ONDANSETRON 4 MG/2 ML VIAL ONE ×2 (02:30)
[2017-03-01 02:31] LABS: Basophils # 0.1 10*3/uL (0.0-0.2); Basophils % 1.1 % (0.0-0.8); Eosinophils # 0.3 10*3/uL (0.0-0.87); Eosinophils % 5.2 % (0.00-10.9); Hematocrit 37.3 VOL% (35.7-47.0); Hemoglobin 12.5 GM/DL (12.0-16.0); Immature Granulocytes % 0.3 %; Immature Granulocytes Absolute 0.02 #; Lymphocytes # 1.3 10*3/uL (1.4-4.0); Lymphocytes % 20.2 % (21.3-54.2); Mean Corpuscular HGB Conc 33.5 GM/DL (32-36); Mean Corpuscular Hemoglobin 26 PG (27-34); Mean Corpuscular Volume 77.5 FL (87-102); Mean Platelet Volume 13.8 FL (9.6-12.0); Monocytes # 0.4 10*3/uL (0.11-0.8); Monocytes % 5.8 % (1.7-12.7); Neutrophils # 4.4 10*3/uL (1.4-7.4); Neutrophils % 67.4 % (38.7-73.9); Platelet Count 188 T/CUMM (130-400); Red Blood Count 4.81 MC/CUMM (3.8-5.5); Red Cell Distribution Width 14.5 % (9.3-17.3); White Blood Count 6.6 T/CUMM (4-12)
[2017-03-01 02:55] LABS: Albumin 3.4 G/DL (3.4-5.0); Bilirubin,Total 0.5 MG/DL (0.2-1.0); Calcium 6.9 MG/DL (8.5-10.1); Osmolality,Calculated 279.8 MOS/KG (273-304); Potassium 2.8 MMOL/L (3.5-5.1); Total Protein 8.7 G/DL (6.4-8.3)
[2017-03-01 03:11] LABS: Apearance,Urine Slightly Hazy (Clear); Bilirubin,Urine Negative (Negative); Blood, Urine Negative (Negative); Glucose,Urine (UA) Negative (Negative); Hyaline Casts,Urine 6 /LPF (0-3); Ketones,Urine 5 mg/dL (Negative); Mucus,Urine Occasional /LPF (Occasional); Nitrite,Urine Negative (Negative); Protein,Urine 30 MG/DL; Urine Color Yellow (Yellow); Urine Urobilinogen < 2.0 EU/DL (0.2-1.0); WBC,Urine 1 /HPF (0-6)
[2017-03-01] MEDS ORDERED: chlorproMAZINE 25 MG TABLET PO PRN (03:28)
[2017-03-01] MEDS ORDERED: LOPERAMIDE 2 MG CAPSULE PO PRN ×2 (03:28)
[2017-03-01] MEDS ORDERED: LACTULOSE 20 GM/30 ML UDCUP PO PRN (03:28)
[2017-03-01] MEDS ORDERED: ACETAMINOPHEN 325 MG TABLET PO PRN (03:28)
[2017-03-01] MEDS ORDERED: BENZTROPINE 2 MG/2 ML AMP IV PRN (03:28)
[2017-03-01] MEDS ORDERED: MYLANTA/LIDO VISC 2:1 300 ML BOTTLE SWISH/SWAL PRN (03:28)
[2017-03-01] MEDS ORDERED: traMADol 50 MG TABLET PO PRN (03:28)
[2017-03-01] MEDS ORDERED: chlorproMAZINE INJ 50 MG in SODIUM CHLORIDE 0.9% 100 ML IV PRN (03:28)
[2017-03-01] MEDS ORDERED: MYLANTA/LIDO VISC 2:1 300 ML BOTTLE SWISH/SPIT PRN (03:28)
[2017-03-01] MEDS ORDERED: MAGNESIUM HYDROXIDE SUSP 30 ML UDCUP PO PRN (03:28)
[2017-03-01] MEDS ORDERED: ALUMINUM/MAGNES/SIMETH MAX STR 30 ML UDCUP PO PRN (03:28)
[2017-03-01] MEDS ORDERED: diphenhydrAMINE CAP 25 MG CAPSULE PO PRN (03:28)
[2017-03-01] MEDS ORDERED: chlorproMAZINE INJ 25 MG in SODIUM CHLORIDE 0.9% 100 ML IV PRN (03:28)
[2017-03-01] MEDS ORDERED: POTASSIUM CHLORIDE INJ 20 MEQ in DEXTROSE 5% NACL 0.45% 1,000 ML IV SCH (03:30)
[2017-03-01 04:59] LABS: Uric Acid 8.3 MG/DL (2.6-6.0)
[2017-03-01] MEDS: PROMETHAZINE INJ 25 MG in SODIUM CHLORIDE 0.9% 50 ML IV PRN ×3 (05:35→23:55)
[2017-03-01] MEDS: ALPRAZolam 0.25 MG TABLET PO PRN ×3 (06:03→20:39)
[2017-03-01] MEDS ORDERED: MAGNESIUM SULF RIDER 4 GM in PREMIX 1 EACH IV ONE (07:37)
[2017-03-01] MEDS: HYDROmorphone 2 MG/1 ML VIAL IV PRN ×6 (07:59→23:55)
[2017-03-01] MEDS: DEXT 5% NACL 0.45% KCL 20 MEQ 20 MEQ/1,000 ML BAG IV SCH ×3 (09:02→23:59)
[2017-03-01] MEDS: ONDANSETRON 4 MG/2 ML VIAL IV PRN (12:49)
[2017-03-01] MEDS: TEMAZEPAM 7.5 MG CAPSULE PO PRN (20:36)
[2017-03-01] MEDS: PANTOPRAZOLE 40 MG TABLET PO SCH (20:39)
[2017-03-02] MEDS: HYDROmorphone 2 MG/1 ML VIAL IV PRN ×8 (04:58→22:34)
[2017-03-02 05:30] LABS: Basophils % 0.7 % (0.0-0.8); Eosinophils # 0.3 10*3/uL (0.0-0.87); Eosinophils % 5.7 % (0.00-10.9); Hematocrit 31.1 VOL% (35.7-47.0); Immature Granulocytes % 0.4 %; Immature Granulocytes Absolute 0.02 #; Lymphocytes # 1.1 10*3/uL (1.4-4.0); Mean Corpuscular HGB Conc 32.5 GM/DL (32-36); Mean Corpuscular Hemoglobin 26 PG (27-34); Mean Corpuscular Volume 78.5 FL (87-102); Mean Platelet Volume 13.3 FL (9.6-12.0); Monocytes # 0.4 10*3/uL (0.11-0.8); Neutrophils # 3.6 10*3/uL (1.4-7.4); Neutrophils % 66.2 % (38.7-73.9); Platelet Count 179 T/CUMM (130-400); Red Blood Count 3.96 MC/CUMM (3.8-5.5); Red Cell Distribution Width 14.6 % (9.3-17.3); White Blood Count 5.5 T/CUMM (4-12)
[2017-03-02 05:50] LABS: Hemoglobin 10.1 GM/DL (12.0-16.0)
[2017-03-02 06:08] LABS: Albumin 2.8 G/DL (3.4-5.0); Bilirubin,Total 0.8 MG/DL (0.2-1.0); Magnesium 1.9 MG/DL (1.8-2.4); Osmolality,Calculated 281.3 MOS/KG (273-304); Potassium 3.1 MMOL/L (3.5-5.1); Total Protein 6.5 G/DL (6.4-8.3)
[2017-03-02] MEDS: PANTOPRAZOLE 40 MG TABLET PO SCH ×2 (08:53→20:34)
[2017-03-02] MEDS: ONDANSETRON 4 MG/2 ML VIAL IV PRN ×2 (08:53→14:23)
[2017-03-02] MEDS: ALPRAZolam 0.25 MG TABLET PO PRN (08:53)
[2017-03-02] MEDS ORDERED: LIDOCAINE 2% 5 ML VIAL ONE (09:08)
[2017-03-02] MEDS ORDERED: PHENYLEPHRINE 1 MG/10 ML SYRINGE IV ONE (09:08)
[2017-03-02] MEDS ORDERED: PROPOFOL 200 MG/20 ML VIAL IV ONE (09:08)
[2017-03-02] MEDS: metroNIDAZOLE INJ 500 MG in PREMIX 1 EACH IV SCH ×2 (11:08→19:11)
[2017-03-02] MEDS: DEXT 5% NACL 0.45% KCL 20 MEQ 20 MEQ/1,000 ML BAG IV SCH (11:09)
[2017-03-02] MEDS: METOCLOPRAMIDE 10 MG/2 ML VIAL IV SCH (17:03)
[2017-03-02] MEDS: PROMETHAZINE INJ 25 MG in SODIUM CHLORIDE 0.9% 50 ML IV PRN (17:03)
[2017-03-02] MEDS: TEMAZEPAM 7.5 MG CAPSULE PO PRN (22:35)
[2017-03-03] MEDS: METOCLOPRAMIDE 10 MG/2 ML VIAL IV SCH ×2 (00:11→06:04)
[2017-03-03] MEDS: guaiFENesin 200 MG/10 ML UDCUP PO PRN ×2 (00:54→09:28)
[2017-03-03] MEDS: metroNIDAZOLE INJ 500 MG in PREMIX 1 EACH IV SCH ×3 (03:19→18:37)
[2017-03-03] MEDS: DEXT 5% NACL 0.45% KCL 20 MEQ 20 MEQ/1,000 ML BAG IV SCH ×3 (06:03→18:35)
[2017-03-03 07:01] LABS: Basophils % 0.5 % (0.0-0.8); Eosinophils # 0.5 10*3/uL (0.0-0.87); Hematocrit 32.9 VOL% (35.7-47.0); Hemoglobin 10.4 GM/DL (12.0-16.0); Immature Granulocytes % 0.4 %; Immature Granulocytes Absolute 0.02 #; Lymphocytes # 1.2 10*3/uL (1.4-4.0); Lymphocytes % 20.6 % (21.3-54.2); Mean Corpuscular HGB Conc 31.6 GM/DL (32-36); Mean Corpuscular Hemoglobin 26 PG (27-34); Mean Corpuscular Volume 81.2 FL (87-102); Mean Platelet Volume 13.6 FL (9.6-12.0); Monocytes # 0.4 10*3/uL (0.11-0.8); Monocytes % 6.2 % (1.7-12.7); Neutrophils # 3.6 10*3/uL (1.4-7.4); Neutrophils % 63.3 % (38.7-73.9); Platelet Count 121 T/CUMM (130-400); Red Blood Count 4.05 MC/CUMM (3.8-5.5); Red Cell Distribution Width 14.9 % (9.3-17.3); White Blood Count 5.7 T/CUMM (4-12)
[2017-03-03] MEDS: HYDROmorphone 2 MG/1 ML VIAL IV PRN ×6 (07:41→23:39)
[2017-03-03 08:05] LABS: Eosinophils 10 % (0-10); Giant Platelets Few; Hypochromasia 1+; Lymphocytes 23 % (20-55); Platelet Estimate Normal; Segmented Neutrophils 59 % (50-85); Total Cells Counted 100
[2017-03-03 08:56] LABS: Albumin 2.5 G/DL (3.4-5.0); Bilirubin,Total 0.6 MG/DL (0.2-1.0); Calcium 7.4 MG/DL (8.5-10.1); Potassium 3.2 MMOL/L (3.5-5.1)
[2017-03-03] MEDS: PANTOPRAZOLE 40 MG TABLET PO SCH ×2 (09:27→21:04)
[2017-03-03] MEDS: ALPRAZolam 0.25 MG TABLET PO PRN ×3 (11:25→21:04)
[2017-03-03] MEDS: METOCLOPRAMIDE 10 MG/10 ML UDCUP PO SCH ×3 (11:26→21:04)
[2017-03-03] MEDS ORDERED: ALBUTEROL/IPRATROPIUM 3 ML NEB RESP TX PRN (12:25)
[2017-03-04] MEDS: metroNIDAZOLE INJ 500 MG in PREMIX 1 EACH IV SCH ×3 (03:21→18:37)
[2017-03-04] MEDS: DEXT 5% NACL 0.45% KCL 20 MEQ 20 MEQ/1,000 ML BAG IV SCH ×2 (06:00→16:29)
[2017-03-04] MEDS: HYDROmorphone 2 MG/1 ML VIAL IV PRN ×7 (06:00→21:02)
[2017-03-04] MEDS: METOCLOPRAMIDE 10 MG/10 ML UDCUP PO SCH ×4 (07:24→21:00)
[2017-03-04] MEDS: ALPRAZolam 0.25 MG TABLET PO PRN ×2 (08:52→12:51)
[2017-03-04] MEDS: PANTOPRAZOLE 40 MG TABLET PO SCH ×2 (08:52→20:58)
[2017-03-04] MEDS: TEMAZEPAM 7.5 MG CAPSULE PO PRN (20:58)
[2017-03-05] MEDS: DEXT 5% NACL 0.45% KCL 20 MEQ 20 MEQ/1,000 ML BAG IV SCH ×2 (03:27→14:44)
[2017-03-05] MEDS: metroNIDAZOLE INJ 500 MG in PREMIX 1 EACH IV SCH (03:33)
[2017-03-05] MEDS ORDERED: METOPROLOL TARTRATE 100 MG TABLET PO ONE (05:40)
[2017-03-05] MEDS: HYDROmorphone 2 MG/1 ML VIAL IV PRN ×4 (05:47→22:21)
[2017-03-05] MEDS ORDERED: fentaNYL 25 MCG/HR PATCH TRANSDERM SCH (09:00)
[2017-03-05] MEDS: PARoxetine 20 MG TABLET PO SCH (09:59)
[2017-03-05] MEDS: METOPROLOL TARTRATE 100 MG TABLET PO SCH (10:00)
[2017-03-05] MEDS: TRIAMTERENE/HCTZ 37.5-25 MG TABLET PO SCH (10:00)
[2017-03-05] MEDS: PANTOPRAZOLE 40 MG TABLET PO SCH ×2 (10:00→20:46)
[2017-03-05] MEDS: METOCLOPRAMIDE 10 MG/10 ML UDCUP PO SCH ×4 (10:20→20:46)
[2017-03-05] MEDS: ONDANSETRON 4 MG/2 ML VIAL IV PRN (19:20)
[2017-03-05] MEDS: TEMAZEPAM 7.5 MG CAPSULE PO PRN (22:17)
[2017-03-06] MEDS: HYDROmorphone 2 MG/1 ML VIAL IV PRN ×3 (02:27→09:58)
[2017-03-06] MEDS: DEXT 5% NACL 0.45% KCL 20 MEQ 20 MEQ/1,000 ML BAG IV SCH ×2 (04:11→09:43)
[2017-03-06] MEDS: ONDANSETRON 4 MG/2 ML VIAL IV PRN (05:30)
[2017-03-06 05:31] LABS: Basophils # 0.1 10*3/uL (0.0-0.2); Basophils % 1.7 % (0.0-0.8); Eosinophils # 0.2 10*3/uL (0.0-0.87); Hematocrit 30.1 VOL% (35.7-47.0); Hemoglobin 9.5 GM/DL (12.0-16.0); Immature Granulocytes % 0.5 %; Immature Granulocytes Absolute 0.03 #; Lymphocytes # 1.5 10*3/uL (1.4-4.0); Lymphocytes % 23.3 % (21.3-54.2); Mean Corpuscular HGB Conc 31.6 GM/DL (32-36); Mean Corpuscular Hemoglobin 26 PG (27-34); Mean Corpuscular Volume 81.1 FL (87-102); Mean Platelet Volume 12.1 FL (9.6-12.0); Monocytes # 0.5 10*3/uL (0.11-0.8); Monocytes % 7.6 % (1.7-12.7); Neutrophils # 4.2 10*3/uL (1.4-7.4); Neutrophils % 63.9 % (38.7-73.9); Platelet Count 234 T/CUMM (130-400); Red Blood Count 3.71 MC/CUMM (3.8-5.5); White Blood Count 6.6 T/CUMM (4-12)
[2017-03-06 05:53] LABS: Albumin 2.3 G/DL (3.4-5.0); Bilirubin,Total 0.5 MG/DL (0.2-1.0); Calcium 6.7 MG/DL (8.5-10.1); Osmolality,Calculated 288.7 MOS/KG (273-304); Potassium 3.4 MMOL/L (3.5-5.1); Total Protein 5.5 G/DL (6.4-8.3)
[2017-03-06 06:03] LABS: Total Protein 5.5 G/DL (6.4-8.3)
[2017-03-06] MEDS ORDERED: MAGNESIUM SULF RIDER 2 GM in PREMIX 1 EACH IV ONE (07:52)
[2017-03-06 08:17] LABS: Immuno Free Light Chain Kappa 81.91 MG/DL (0.33-1.94); Immuno Free Light Chain Lambda 1.43 MG/DL (0.57-2.63); Immuno Free Light Chain Ratio 57.28 MG/DL (0.26-1.65)
[2017-03-06 08:59] LABS: Albumin (SPE) 2.8 G/DL (3.2-5.3); Albumin (SPE) Rel % 51.5 %; Alpha 1 (SPE) 0.3 G/DL (0.1-0.4); Alpha 1 (SPE) Rel % 5.1 %; Alpha 2 (SPE) 0.8 G/DL (0.4-1.0); Alpha 2 (SPE) Rel % 15.6 %; Beta (SPE) 0.5 G/DL (0.5-1.1); Beta (SPE) Rel % 9.7 %; Gamma (SPE) Rel % 18.1 %; Total Protein (Chem) 5.5 G/DL (6.4-8.3)
[2017-03-06] MEDS: guaiFENesin 200 MG/10 ML UDCUP PO PRN (09:39)
[2017-03-06] MEDS: METOCLOPRAMIDE 10 MG/10 ML UDCUP PO SCH (09:39)
[2017-03-06] MEDS: PANTOPRAZOLE 40 MG TABLET PO SCH (09:42)
[2017-03-06] MEDS: PARoxetine 20 MG TABLET PO SCH (09:42)
[2017-03-06] MEDS: METOPROLOL TARTRATE 100 MG TABLET PO SCH (09:42)
[2017-03-06] MEDS: TRIAMTERENE/HCTZ 37.5-25 MG TABLET PO SCH (09:43)
[2017-03-06 13:14] VITALS: BP 145/84
== END 2017-03-06 12:42 | disposition home or self-care (01) | DRG 74 ==
LOC: EDBD → EDUNIT# → N.EDINP 01:55 → N.ED 01:55 → N.4E 04:29
PROVIDERS: ADMIT Specialist; ATTEND Specialist

== ENCOUNTER 2017-03-06 19:17 | Inpatient (IN) ==
[2017-03-06] MEDS ORDERED: ONDANSETRON 4 MG/2 ML VIAL IV STA (20:05)
[2017-03-06] MEDS ORDERED: METOCLOPRAMIDE 10 MG/2 ML VIAL IV STA (20:05)
[2017-03-06] MEDS ORDERED: PANTOPRAZOLE 40 MG VIAL IV STA (20:08)
[2017-03-06] MEDS ORDERED: LORazepam 2 MG/1 ML VIAL IV STA (20:08)
[2017-03-06] MEDS ORDERED: ALUM/MAG/SIMETH/LIDO VISC 1:1 30 ML BOTTLE PO STA (20:08)
[2017-03-06] MEDS ORDERED: SODIUM CHLORIDE 0.9% 1,000 ML IV STA (20:08)
[2017-03-06] MEDS ORDERED: METOCLOPRAMIDE 10 MG/2 ML VIAL ONE (20:26)
[2017-03-06] MEDS ORDERED: ONDANSETRON 4 MG/2 ML VIAL ONE (20:26)
[2017-03-06 20:30] LABS: Basophils # 0.1 10*3/uL (0.0-0.2); Basophils % 1.6 % (0.0-0.8); Eosinophils % 0.5 % (0.00-10.9); Hematocrit 32.1 VOL% (35.7-47.0); Hemoglobin 10.1 GM/DL (12.0-16.0); Immature Granulocytes % 0.4 %; Immature Granulocytes Absolute 0.03 #; Lymphocytes # 1.1 10*3/uL (1.4-4.0); Mean Corpuscular HGB Conc 31.5 GM/DL (32-36); Mean Corpuscular Hemoglobin 25 PG (27-34); Mean Corpuscular Volume 79.7 FL (87-102); Mean Platelet Volume 11.6 FL (9.6-12.0); Monocytes # 0.3 10*3/uL (0.11-0.8); Monocytes % 4.3 % (1.7-12.7); Neutrophils # 5.8 10*3/uL (1.4-7.4); Neutrophils % 78.2 % (38.7-73.9); Platelet Count 248 T/CUMM (130-400); Red Blood Count 4.03 MC/CUMM (3.8-5.5); White Blood Count 7.5 T/CUMM (4-12)
[2017-03-06 20:51] LABS: Alanine Aminotransferase 16 U/L (13-56); Albumin 2.6 G/DL (3.4-5.0); Alkaline Phosphatase 125 U/L (45-117); Amylase 27 U/L (25-115); Aspartate Amino Transferase 14 U/L (0-37); Blood Urea Nitrogen 5 MG/DL (7-18); Calcium 6.9 MG/DL (8.5-10.1); Glucose 216 MG/DL (74-106); Magnesium 1.1 MG/DL (1.8-2.4); Osmolality,Calculated 286.1 MOS/KG (273-304); Potassium 2.7 MMOL/L (3.5-5.1); Sodium 142 MMOL/L (136-145); Total Protein 7.1 G/DL (6.4-8.3); Troponin I Only < 0.015 NG/ML (0.00-0.045)
[2017-03-06] MEDS ORDERED: PANTOPRAZOLE 40 MG VIAL IV ONE (21:09)
[2017-03-06] MEDS ORDERED: LORazepam 2 MG/1 ML VIAL ONE (21:10)
[2017-03-06] MEDS ORDERED: ALUM/MAG/SIMETH/LIDO VISC 1:1 30 ML BOTTLE PO ONE (21:10)
[2017-03-06 21:24] LABS: Lactic Acid 1.2 MMOL/L (0.4-2.0)
[2017-03-06] MEDS ORDERED: POTASSIUM CHLORIDE RIDER 20 MEQ in PREMIX 1 EACH IV STA (22:08)
[2017-03-06] MEDS ORDERED: MAGNESIUM SULF RIDER 2 GM in PREMIX 1 EACH IV STA (22:09)
[2017-03-06] MEDS ORDERED: POTASSIUM CHLORIDE 20 MEQ PACK ONE (22:18)
[2017-03-06] MEDS ORDERED: MAGNESIUM SULF RIDER 50 ML IV ONE (22:20)
[2017-03-06] MEDS ORDERED: POTASSIUM CHLORIDE RIDER 10 MEQ in PREMIX 1 EACH IV ONE (23:25)
[2017-03-06] MEDS ORDERED: TEMAZEPAM 7.5 MG CAPSULE PO PRN (23:43)
[2017-03-06] MEDS ORDERED: PROMETHAZINE 25 MG TABLET PO PRN (23:43)
[2017-03-06] MEDS ORDERED: BENZTROPINE 2 MG/2 ML AMP IV PRN (23:43)
[2017-03-06] MEDS ORDERED: ONDANSETRON 4 MG/2 ML VIAL IV PRN (23:43)
[2017-03-06] MEDS ORDERED: METOCLOPRAMIDE 10 MG/10 ML UDCUP PO PRN (23:43)
[2017-03-06] MEDS ORDERED: MYLANTA/LIDO VISC 2:1 300 ML BOTTLE SWISH/SWAL PRN (23:43)
[2017-03-06] MEDS ORDERED: MAGNESIUM HYDROXIDE SUSP 30 ML UDCUP PO PRN (23:43)
[2017-03-06] MEDS ORDERED: PROMETHAZINE INJ 25 MG in SODIUM CHLORIDE 0.9% 50 ML IV PRN (23:43)
[2017-03-06] MEDS ORDERED: DEXTROSE 50% 25 GM/50 ML VIAL IV PRN (23:43)
[2017-03-06] MEDS ORDERED: ALPRAZolam 0.5 MG TABLET PO PRN (23:43)
[2017-03-06] MEDS ORDERED: LOPERAMIDE 2 MG CAPSULE PO PRN ×2 (23:43)
[2017-03-06] MEDS ORDERED: LACTULOSE 20 GM/30 ML UDCUP PO PRN (23:43)
[2017-03-06] MEDS ORDERED: ALUMINUM/MAGNES/SIMETH MAX STR 30 ML UDCUP PO PRN (23:43)
[2017-03-06] MEDS ORDERED: traMADol 50 MG TABLET PO PRN (23:43)
[2017-03-06] MEDS ORDERED: ACETAMINOPHEN 325 MG TABLET PO PRN (23:43)
[2017-03-06] MEDS ORDERED: MYLANTA/LIDO VISC 2:1 300 ML BOTTLE SWISH/SPIT PRN (23:43)
[2017-03-06] MEDS ORDERED: GLUCAGON 1 MG VIAL IM PRN (23:43)
[2017-03-06] MEDS ORDERED: diphenhydrAMINE CAP 25 MG CAPSULE PO PRN (23:43)
[2017-03-06] MEDS ORDERED: NON-FORMULARY MEDICATION (Ondansetron Hcl [Ondansetron Hcl] 8 MG) PO PRN (23:43)
[2017-03-06] MEDS ORDERED: guaiFENesin 200 MG/10 ML UDCUP PO PRN (23:43)
[2017-03-06] MEDS ORDERED: POTASSIUM CHLORIDE RIDER 100 ML IV ONE (23:48)
[2017-03-07] MEDS: oxyCODONE/ACETAMINOPHEN 5-325 MG TABLET PO PRN ×2 (03:32→10:19)
[2017-03-07] MEDS: SODIUM CHLORIDE 0.9% 1,000 ML IV SCH ×2 (03:38→11:56)
[2017-03-07 05:32] LABS: Basophils # 0.1 10*3/uL (0.0-0.2); Hematocrit 28.8 VOL% (35.7-47.0); Hemoglobin 9.4 GM/DL (12.0-16.0); Immature Granulocytes % 0.6 %; Immature Granulocytes Absolute 0.04 #; Lymphocytes % 14.9 % (21.3-54.2); Mean Corpuscular HGB Conc 32.6 GM/DL (32-36); Mean Corpuscular Hemoglobin 26 PG (27-34); Mean Corpuscular Volume 78.5 FL (87-102); Mean Platelet Volume 12.1 FL (9.6-12.0); Monocytes # 0.3 10*3/uL (0.11-0.8); Monocytes % 4.5 % (1.7-12.7); Neutrophils # 5.3 10*3/uL (1.4-7.4); Platelet Count 267 T/CUMM (130-400); Red Blood Count 3.67 MC/CUMM (3.8-5.5); White Blood Count 6.7 T/CUMM (4-12)
[2017-03-07] MEDS ORDERED: HYDROmorphone 2 MG/1 ML VIAL IV ONE (06:00)
[2017-03-07 06:01] LABS: Albumin 2.6 G/DL (3.4-5.0); Bilirubin,Total 0.6 MG/DL (0.2-1.0); Calcium 6.6 MG/DL (8.5-10.1); Magnesium 1.3 MG/DL (1.8-2.4); Osmolality,Calculated 285.8 MOS/KG (273-304); Potassium 2.9 MMOL/L (3.5-5.1); Total Protein 5.7 G/DL (6.4-8.3)
[2017-03-07] MEDS: ENOXAPARIN 40 MG/0.4 ML SYRINGE SUBCUT SCH ×2 (06:02→06:14)
[2017-03-07] MEDS: INSULIN REGULAR 100 UNIT/ML SUBCUT SCH ×4 (08:19→21:53)
[2017-03-07] MEDS: SODIUM CHLOR 0.45% KCL 20 MEQ 20 MEQ/1,000 ML BAG IV SCH (08:59)
[2017-03-07] MEDS ORDERED: PANTOPRAZOLE 40 MG VIAL IV SCH (09:00)
[2017-03-07] MEDS: PARoxetine 20 MG TABLET PO SCH (09:08)
[2017-03-07] MEDS: GABAPENTIN 400 MG CAPSULE PO SCH ×3 (09:08→21:56)
[2017-03-07] MEDS: METOPROLOL TARTRATE 100 MG TABLET PO SCH (09:09)
[2017-03-07] MEDS: PANTOPRAZOLE 40 MG TABLET PO SCH ×2 (09:09→21:56)
[2017-03-07] MEDS: TRIAMTERENE/HCTZ 37.5-25 MG TABLET PO SCH (09:10)
[2017-03-07] MEDS: ALPRAZolam 0.25 MG TABLET PO PRN (09:10)
[2017-03-07] MEDS: METOCLOPRAMIDE 10 MG/2 ML VIAL IV SCH (18:14)
[2017-03-07] MEDS ORDERED: INSULIN LISPRO 100 UNIT/ML SUBCUT SCH (19:00)
[2017-03-08] MEDS: SODIUM CHLOR 0.45% KCL 20 MEQ 20 MEQ/1,000 ML BAG IV SCH ×2 (00:14→14:07)
[2017-03-08] MEDS: METOCLOPRAMIDE 10 MG/2 ML VIAL IV SCH ×3 (00:14→06:48)
[2017-03-08 05:41] LABS: Basophils # 0.1 10*3/uL (0.0-0.2); Eosinophils % 0.5 % (0.00-10.9); Hematocrit 27.5 VOL% (35.7-47.0); Hemoglobin 9.1 GM/DL (12.0-16.0); Immature Granulocytes % 0.3 %; Immature Granulocytes Absolute 0.02 #; Lymphocytes # 1.9 10*3/uL (1.4-4.0); Lymphocytes % 31.6 % (21.3-54.2); Mean Corpuscular HGB Conc 33.1 GM/DL (32-36); Mean Corpuscular Hemoglobin 26 PG (27-34); Mean Corpuscular Volume 78.6 FL (87-102); Mean Platelet Volume 11.8 FL (9.6-12.0); Monocytes # 0.5 10*3/uL (0.11-0.8); Monocytes % 8.2 % (1.7-12.7); Neutrophils # 3.5 10*3/uL (1.4-7.4); Neutrophils % 57.4 % (38.7-73.9); Platelet Count 263 T/CUMM (130-400); Red Cell Distribution Width 15.4 % (9.3-17.3); White Blood Count 6.1 T/CUMM (4-12)
[2017-03-08 06:21] LABS: Calcium 6.2 MG/DL (8.5-10.1); Magnesium 1.1 MG/DL (1.8-2.4); Potassium 2.9 MMOL/L (3.5-5.1)
[2017-03-08] MEDS: ENOXAPARIN 40 MG/0.4 ML SYRINGE SUBCUT SCH (06:40)
[2017-03-08] MEDS ORDERED: MAGNESIUM SULF RIDER 2 GM in PREMIX 1 EACH IV ONE (08:00)
[2017-03-08] MEDS: INSULIN REGULAR 100 UNIT/ML SUBCUT SCH ×3 (08:09→16:30)
[2017-03-08] MEDS: SODIUM CHLORIDE 0.9% 1,000 ML IV SCH (08:10)
[2017-03-08] MEDS ORDERED: MAGNESIUM CHLORIDE 64 MG TABLET PO SCH (09:00)
[2017-03-08] MEDS ORDERED: POTASSIUM CHLORIDE INJ 40 MEQ in SODIUM CHLORIDE 0.9% 500 ML IV ONE (09:00)
[2017-03-08] MEDS: PANTOPRAZOLE 40 MG TABLET PO SCH (09:02)
[2017-03-08] MEDS: TRIAMTERENE/HCTZ 37.5-25 MG TABLET PO SCH (09:02)
[2017-03-08] MEDS: PARoxetine 20 MG TABLET PO SCH (09:03)
[2017-03-08] MEDS: GABAPENTIN 400 MG CAPSULE PO SCH ×2 (09:04→16:43)
[2017-03-08] MEDS: METOPROLOL TARTRATE 100 MG TABLET PO SCH (09:04)
[2017-03-08] MEDS: METOCLOPRAMIDE 10 MG/10 ML UDCUP PO SCH ×2 (11:41→16:44)
[2017-03-08] MEDS: ALPRAZolam 0.25 MG TABLET PO PRN (16:43)
[2017-03-08 17:04] LABS: Apearance,Urine Slightly Hazy (Clear); Bacteria,Urine Moderate /HPF (Few); Bilirubin,Urine Negative (Negative); Blood, Urine Small mg/dL (Negative); Glucose,Urine (UA) Negative (Negative); Ketones,Urine Negative (Negative); Mucus,Urine Occasional /LPF (Occasional); Nitrite,Urine Negative (Negative); Protein,Urine Negative; RBC,Urine 2 /HPF (0-4); Squamous Epithelial Cell,Urine Occasional /HPF (0-10); Urine Color Yellow (Yellow); Urine Specific Gravity 1.004 (1.001-1.035); Urine Urobilinogen < 2.0 EU/DL (0.2-1.0); WBC,Urine 12 /HPF (0-6)
[2017-03-08 21:25] VITALS: BP 150/80
[2017-03-09] MEDS ORDERED: fentaNYL 25 MCG/HR PATCH TRANSDERM SCH (09:00)
== END 2017-03-08 18:10 | disposition home health service (06) | DRG 74 ==
LOC: EDBD → EDUNIT# → N.ED 19:17 → N.EDINP 19:17 → N.4E 03-07 01:04
PROVIDERS: ADMIT Specialist; ATTEND Specialist

== ENCOUNTER 2017-12-02 10:04 | Inpatient (IN) ==
[2017-12-02] MEDS ORDERED: SODIUM CHLORIDE 0.9% 1,000 ML IV STA (11:01)
[2017-12-02] MEDS ORDERED: ONDANSETRON 4 MG/2 ML VIAL IV STA (11:01)
[2017-12-02 11:53] LABS: Basophils % 1.1 % (0.0-0.8); Eosinophils # 0.1 10*3/uL (0.0-0.87); Eosinophils % 5.4 % (0.00-10.9); Hemoglobin 9.1 GM/DL (12.0-16.0); Immature Granulocytes % 0.5 %; Immature Granulocytes Absolute 0.01 #; Lymphocytes % 55.4 % (21.3-54.2); Mean Corpuscular HGB Conc 33.7 GM/DL (32-36); Mean Corpuscular Hemoglobin 28 PG (27-34); Mean Corpuscular Volume 82.3 FL (87-102); Mean Platelet Volume 11.8 FL (9.6-12.0); Monocytes # 0.3 10*3/uL (0.11-0.8); Monocytes % 14.1 % (1.7-12.7); Neutrophils # 0.4 10*3/uL (1.4-7.4); Neutrophils % 23.5 % (38.7-73.9); Platelet Count 44 T/CUMM (130-400); Red Blood Count 3.28 MC/CUMM (3.8-5.5); Red Cell Distribution Width 15.9 % (9.3-17.3); White Blood Count 1.8 T/CUMM (4-12)
[2017-12-02 11:58] LABS: Albumin 2.3 G/DL (3.4-5.0); Bilirubin,Total 0.4 MG/DL (0.2-1.0); Calcium 9.2 MG/DL (8.5-10.1); Lactic Acid 0.6 MMOL/L (0.4-2.0); Osmolality,Calculated 288.7 MOS/KG (273-304); Potassium 3.5 MMOL/L (3.5-5.1); Total Protein 9.8 G/DL (6.4-8.3)
[2017-12-02 12:25] LABS: Apearance,Urine Slightly Hazy (Clear); Bilirubin,Urine Negative (Negative); Blood, Urine Negative (Negative); Glucose,Urine (UA) Negative (Negative); Ketones,Urine Negative (Negative); Nitrite,Urine Negative (Negative); Protein,Urine 100 MG/DL; RBC,Urine 2 /HPF (0-4); Urine Color Yellow (Yellow); Urine Specific Gravity 1.018 (1.001-1.035); Urine Urobilinogen < 2.0 EU/DL (0.2-1.0); WBC,Urine 3 /HPF (0-6)
[2017-12-02 12:44] LABS: Lymphocytes 60 % (20-55); Polychromasia Slight; Segmented Neutrophils 40 % (50-85); Total Cells Counted 100
[2017-12-02 12:45] LABS: Platelet Estimate Decreased
[2017-12-02] MEDS ORDERED: MORPHINE 10 MG/1 ML VIAL ONE ×2 (13:06→14:31)
[2017-12-02] MEDS ORDERED: MORPHINE 4 MG/1 ML VIAL IV STA ×2 (13:20→16:14)
[2017-12-02] MEDS ORDERED: MAGNESIUM SULF RIDER 2 GM in PREMIX 1 EACH IV ONE (14:34)
[2017-12-02] MEDS ORDERED: ONDANSETRON 4 MG/2 ML VIAL IV PRN (15:25)
[2017-12-02] MEDS ORDERED: DEXTROSE 50% 25 GM/50 ML VIAL IV PRN (15:25)
[2017-12-02] MEDS ORDERED: GLUCAGON 1 MG VIAL IM PRN (15:25)
[2017-12-02] MEDS ORDERED: MAGNESIUM SULF RIDER 4 GM in PREMIX 1 EACH IV PRN (15:30)
[2017-12-02] MEDS ORDERED: MAGNESIUM SULF RIDER 2 GM in PREMIX 1 EACH IV PRN (15:30)
[2017-12-02] MEDS ORDERED: oxyCODONE ER 20 MG TABLET PO PRN (15:31)
[2017-12-02] MEDS ORDERED: METOCLOPRAMIDE 10 MG/10 ML UDCUP PO PRN (15:31)
[2017-12-02] MEDS: SODIUM CHLORIDE 0.9% 1,000 ML IV SCH (17:59)
[2017-12-02] MEDS: INSULIN REGULAR 100 UNIT/ML SUBCUT SCH ×2 (17:59→20:04)
[2017-12-02] MEDS ORDERED: INSULIN ASPART 7 UNIT SUBCUT SCH (19:00)
[2017-12-02] MEDS: HYDROmorphone 2 MG/1 ML VIAL IV PRN (20:58)
[2017-12-02] MEDS: GABAPENTIN 400 MG CAPSULE PO SCH (20:59)
[2017-12-02] MEDS: PANTOPRAZOLE 40 MG TABLET PO SCH (20:59)
[2017-12-02] MEDS: ALPRAZolam 0.5 MG TABLET PO SCH (21:00)
[2017-12-03] MEDS: SODIUM CHLORIDE 0.9% 1,000 ML IV SCH ×4 (00:33→21:07)
[2017-12-03] MEDS: HYDROmorphone 2 MG/1 ML VIAL IV PRN ×3 (03:22→21:01)
[2017-12-03 05:43] LABS: Basophils % 1.3 % (0.0-0.8); Eosinophils # 0.1 10*3/uL (0.0-0.87); Eosinophils % 5.2 % (0.00-10.9); Hematocrit 23.2 VOL% (35.7-47.0); Hemoglobin 7.7 GM/DL (12.0-16.0); Immature Granulocytes % 0.7 %; Immature Granulocytes Absolute 0.01 #; Lymphocytes # 0.8 10*3/uL (1.4-4.0); Lymphocytes % 52.9 % (21.3-54.2); Mean Corpuscular HGB Conc 33.2 GM/DL (32-36); Mean Corpuscular Hemoglobin 28 PG (27-34); Mean Corpuscular Volume 83.2 FL (87-102); Mean Platelet Volume 10.4 FL (9.6-12.0); Monocytes # 0.3 10*3/uL (0.11-0.8); Monocytes % 17.6 % (1.7-12.7); Neutrophils # 0.3 10*3/uL (1.4-7.4); Neutrophils % 22.3 % (38.7-73.9); Red Blood Count 2.79 MC/CUMM (3.8-5.5); Red Cell Distribution Width 16.1 % (9.3-17.3); White Blood Count 1.5 T/CUMM (4-12)
[2017-12-03 05:48] LABS: Platelet Count 34 T/CUMM (130-400)
[2017-12-03 06:04] LABS: Calcium 8.6 MG/DL (8.5-10.1); Osmolality,Calculated 290.3 MOS/KG (273-304); Potassium 3.3 MMOL/L (3.5-5.1)
[2017-12-03 06:05] LABS: Atypical Lymphocytes Few; Eosinophils 6 % (0-10); Hypochromasia 1+; Lymphocytes 54 % (20-55); Microcytosis 1+; Segmented Neutrophils 26 % (50-85); Total Cells Counted 100
[2017-12-03 06:06] LABS: Platelet Estimate Decreased
[2017-12-03] MEDS: INSULIN REGULAR 100 UNIT/ML SUBCUT SCH ×4 (07:36→21:01)
[2017-12-03] MEDS ORDERED: SODIUM CHLORIDE 0.9% 1,000 ML IV PRN (08:15)
[2017-12-03] MEDS: PANTOPRAZOLE 40 MG TABLET PO SCH ×2 (08:26→11:06)
[2017-12-03] MEDS: PARoxetine 20 MG TABLET PO SCH ×2 (08:26→11:07)
[2017-12-03] MEDS: CALCIUM (CARBONATE) 500 MG TABLET PO SCH ×2 (08:26→11:07)
[2017-12-03] MEDS: METOPROLOL TARTRATE 100 MG TABLET PO SCH ×2 (08:26→11:06)
[2017-12-03] MEDS: GABAPENTIN 400 MG CAPSULE PO SCH ×4 (08:26→21:00)
[2017-12-03] MEDS: TRIAMTERENE/HCTZ 37.5-25 MG TABLET PO SCH ×2 (08:26→11:16)
[2017-12-03] MEDS: oxyCODONE/ACETAMINOPHEN 5-325 MG TABLET PO PRN (08:27)
[2017-12-03] MEDS ORDERED: INSULIN DEGLUDEC 30 UNIT SUBCUT SCH (09:00)
[2017-12-03] MEDS: ALPRAZolam 0.5 MG TABLET PO SCH ×2 (11:07→21:00)
[2017-12-03] MEDS: FILGRASTIM-SNDZ 300 MCG/0.5 ML SYRINGE SUBCUT SCH (11:08)
[2017-12-03] MEDS ORDERED: POTASSIUM CHLORIDE 20 MEQ TABLET PO PRN (16:18)
[2017-12-03] MEDS ORDERED: POTASSIUM CHLORIDE RIDER 20 MEQ in PREMIX 1 EACH IV ONE (16:23)
[2017-12-03] MEDS: PANTOPRAZOLE 40 MG VIAL IV SCH (20:57)
[2017-12-04] MEDS: SODIUM CHLORIDE 0.9% 1,000 ML IV SCH ×2 (05:55→09:22)
[2017-12-04] MEDS: HYDROmorphone 2 MG/1 ML VIAL IV PRN ×4 (06:26→21:44)
[2017-12-04 06:46] LABS: Basophils % 0.9 % (0.0-0.8); Eosinophils # 0.1 10*3/uL (0.0-0.87); Eosinophils % 4.4 % (0.00-10.9); Hematocrit 21.2 VOL% (35.7-47.0); Immature Granulocytes % 9.2 %; Immature Granulocytes Absolute 0.21 #; Lymphocytes # 1.2 10*3/uL (1.4-4.0); Lymphocytes % 51.1 % (21.3-54.2); Mean Corpuscular Hemoglobin 28 PG (27-34); Mean Corpuscular Volume 85.5 FL (87-102); Monocytes # 0.3 10*3/uL (0.11-0.8); Monocytes % 10.9 % (1.7-12.7); Neutrophils # 0.5 10*3/uL (1.4-7.4); Neutrophils % 23.5 % (38.7-73.9); Red Blood Count 2.48 MC/CUMM (3.8-5.5); Red Cell Distribution Width 16.6 % (9.3-17.3); White Blood Count 2.3 T/CUMM (4-12)
[2017-12-04 06:50] LABS: Platelet Count 39 T/CUMM (130-400)
[2017-12-04 07:12] LABS: Albumin 1.7 G/DL (3.4-5.0); Bilirubin,Total 0.5 MG/DL (0.2-1.0); Calcium 8.2 MG/DL (8.5-10.1); Potassium 3.7 MMOL/L (3.5-5.1); Total Protein 7.8 G/DL (6.4-8.3)
[2017-12-04 07:42] LABS: Band Neutrophils 1 % (0-10); Eosinophils 5 % (0-10); Hypochromasia 1+; Lymphocytes 50 % (20-55); Microcytosis Slight; Platelet Estimate Decreased; Segmented Neutrophils 33 % (50-85); Total Cells Counted 100
[2017-12-04 07:43] LABS: Atypical Lymphocytes Few
[2017-12-04] MEDS ORDERED: SODIUM CHLORIDE 0.45% 1,000 ML IV SCH (08:30)
[2017-12-04] MEDS: INSULIN REGULAR 100 UNIT/ML SUBCUT SCH ×4 (08:39→21:38)
[2017-12-04] MEDS ORDERED: MAGNESIUM SULF RIDER 4 GM in PREMIX 1 EACH IV ONE (09:00)
[2017-12-04] MEDS: GABAPENTIN 400 MG CAPSULE PO SCH ×3 (09:14→21:35)
[2017-12-04] MEDS: METOPROLOL TARTRATE 100 MG TABLET PO SCH (09:15)
[2017-12-04] MEDS: ALPRAZolam 0.5 MG TABLET PO SCH ×2 (09:15→21:35)
[2017-12-04] MEDS: PARoxetine 20 MG TABLET PO SCH (09:16)
[2017-12-04] MEDS: CALCIUM (CARBONATE) 500 MG TABLET PO SCH (09:16)
[2017-12-04] MEDS: PANTOPRAZOLE 40 MG VIAL IV SCH ×2 (09:17→21:42)
[2017-12-04] MEDS: FILGRASTIM-SNDZ 300 MCG/0.5 ML SYRINGE SUBCUT SCH (09:20)
[2017-12-04] MEDS: oxyCODONE/ACETAMINOPHEN 5-325 MG TABLET PO PRN ×3 (09:28→19:41)
[2017-12-04] MEDS: SODIUM BICARB INJ 50 MEQ in SODIUM CHLORIDE 0.45% 1,000 ML IV SCH (21:46)
[2017-12-05 05:51] LABS: Basophils % 0.3 % (0.0-0.8); Eosinophils # 0.2 10*3/uL (0.0-0.87); Eosinophils % 4.4 % (0.00-10.9); Hematocrit 30.6 VOL% (35.7-47.0); Hemoglobin 10.1 GM/DL (12.0-16.0); Immature Granulocytes % 5.6 %; Immature Granulocytes Absolute 0.19 #; Lymphocytes # 1.6 10*3/uL (1.4-4.0); Lymphocytes % 45.7 % (21.3-54.2); Mean Corpuscular Hemoglobin 28 PG (27-34); Mean Corpuscular Volume 85.5 FL (87-102); Mean Platelet Volume 12.2 FL (9.6-12.0); Monocytes # 0.5 10*3/uL (0.11-0.8); Monocytes % 13.2 % (1.7-12.7); Neutrophils # 1.1 10*3/uL (1.4-7.4); Neutrophils % 30.8 % (38.7-73.9); Platelet Count 44 T/CUMM (130-400); Red Blood Count 3.58 MC/CUMM (3.8-5.5); Red Cell Distribution Width 17.1 % (9.3-17.3); White Blood Count 3.4 T/CUMM (4-12)
[2017-12-05 06:15] LABS: Albumin 1.9 G/DL (3.4-5.0); Bilirubin,Total 1.3 MG/DL (0.2-1.0); Calcium 10.2 MG/DL (8.5-10.1); Total Protein 8.3 G/DL (6.4-8.3)
[2017-12-05 06:16] LABS: Osmolality,Calculated 288.3 MOS/KG (273-304); Potassium 3.5 MMOL/L (3.5-5.1)
[2017-12-05 06:31] LABS: Band Neutrophils 1 % (0-10); Eosinophils 7 % (0-10); Hypochromasia 1+; Lymphocytes 38 % (20-55); Platelet Estimate Decreased; Segmented Neutrophils 38 % (50-85); Total Cells Counted 100
[2017-12-05 06:32] LABS: Atypical Lymphocytes Few; Microcytosis Slight
[2017-12-05] MEDS ORDERED: DEXAMETHASONE INJ 10 MG in SODIUM CHLORIDE 0.9% 50 ML IV ONE (08:12)
[2017-12-05] MEDS ORDERED: CYCLOPHOSPHAMIDE INJ 500 MG in SODIUM CHLORIDE 0.9% 250 ML IV ONE (08:12)
[2017-12-05] MEDS: INSULIN REGULAR 100 UNIT/ML SUBCUT SCH ×4 (08:27→21:33)
[2017-12-05] MEDS ORDERED: GRANISETRON 1 MG/1 ML VIAL IV SCH (08:30)
[2017-12-05] MEDS: HYDROmorphone 2 MG/1 ML VIAL IV PRN ×3 (09:34→19:42)
[2017-12-05] MEDS: PANTOPRAZOLE 40 MG VIAL IV SCH ×2 (09:38→21:34)
[2017-12-05] MEDS: PARoxetine 20 MG TABLET PO SCH (09:41)
[2017-12-05] MEDS: ALPRAZolam 0.5 MG TABLET PO SCH ×2 (09:42→21:37)
[2017-12-05] MEDS: GABAPENTIN 400 MG CAPSULE PO SCH ×3 (09:42→21:33)
[2017-12-05] MEDS: CALCIUM (CARBONATE) 500 MG TABLET PO SCH (09:43)
[2017-12-05] MEDS: METOPROLOL TARTRATE 100 MG TABLET PO SCH (09:43)
[2017-12-05] MEDS: FILGRASTIM-SNDZ 300 MCG/0.5 ML SYRINGE SUBCUT SCH (09:44)
[2017-12-05] MEDS: SODIUM BICARB INJ 50 MEQ in SODIUM CHLORIDE 0.45% 1,000 ML IV SCH (21:43)
[2017-12-06 05:20] LABS: Basophils % 0.8 % (0.0-0.8); Eosinophils # 0.1 10*3/uL (0.0-0.87); Eosinophils % 2.8 % (0.00-10.9); Hematocrit 30.2 VOL% (35.7-47.0); Hemoglobin 9.9 GM/DL (12.0-16.0); Immature Granulocytes % 1.5 %; Immature Granulocytes Absolute 0.06 #; Lymphocytes # 1.2 10*3/uL (1.4-4.0); Lymphocytes % 30.3 % (21.3-54.2); Mean Corpuscular HGB Conc 32.8 GM/DL (32-36); Mean Corpuscular Hemoglobin 28 PG (27-34); Mean Corpuscular Volume 86.3 FL (87-102); Mean Platelet Volume 11.7 FL (9.6-12.0); Monocytes # 0.7 10*3/uL (0.11-0.8); Monocytes % 17.7 % (1.7-12.7); Neutrophils # 1.9 10*3/uL (1.4-7.4); Neutrophils % 46.9 % (38.7-73.9); Platelet Count 42 T/CUMM (130-400)
[2017-12-06 06:01] LABS: Alanine Aminotransferase < 9 U/L (13-56); Albumin 1.8 G/DL (3.4-5.0); Alkaline Phosphatase 70 U/L (45-117); Aspartate Amino Transferase 14 U/L (0-37); Calcium 11.2 MG/DL (8.5-10.1); Total Protein 8.2 G/DL (6.4-8.3)
[2017-12-06 06:02] LABS: Blood Urea Nitrogen 37 MG/DL (7-18); Glucose 196 MG/DL (74-106); Osmolality,Calculated 290.5 MOS/KG (273-304); Potassium 3.9 MMOL/L (3.5-5.1); Sodium 139 MMOL/L (136-145)
[2017-12-06 06:06] LABS: Atypical Lymphocytes Few; Band Neutrophils 3 % (0-10); Eosinophils 4 % (0-10); Hypochromasia 1+; Lymphocytes 29 % (20-55); Microcytosis Slight; Platelet Estimate Decreased; Segmented Neutrophils 48 % (50-85); Total Cells Counted 100
[2017-12-06] MEDS ORDERED: ERGOCALCIFEROL 50,000 UNIT CAPSULE PO SCH (09:00)
[2017-12-06] MEDS: INSULIN REGULAR 100 UNIT/ML SUBCUT SCH ×2 (09:08→13:06)
[2017-12-06] MEDS: GABAPENTIN 400 MG CAPSULE PO SCH ×2 (09:08→15:03)
[2017-12-06] MEDS: PARoxetine 20 MG TABLET PO SCH (09:08)
[2017-12-06] MEDS: PANTOPRAZOLE 40 MG VIAL IV SCH (09:08)
[2017-12-06] MEDS: CALCIUM (CARBONATE) 500 MG TABLET PO SCH (09:08)
[2017-12-06] MEDS: METOPROLOL TARTRATE 100 MG TABLET PO SCH (09:09)
[2017-12-06] MEDS: ALPRAZolam 0.5 MG TABLET PO SCH (09:09)
[2017-12-06] MEDS: FILGRASTIM-SNDZ 300 MCG/0.5 ML SYRINGE SUBCUT SCH (09:16)
[2017-12-06] MEDS: oxyCODONE/ACETAMINOPHEN 5-325 MG TABLET PO PRN ×2 (09:21→15:07)
[2017-12-06 12:43] VITALS: BP 146/95
[2017-12-06] MEDS: SODIUM BICARB INJ 50 MEQ in SODIUM CHLORIDE 0.45% 1,000 ML IV SCH (12:49)
[2017-12-06] MEDS ORDERED: HEPARIN LOCK FLUSH 500 UNIT/5 ML SYRINGE IV ONE (17:02)
== END 2017-12-06 17:45 | disposition home health service (06) | DRG 947 ==
LOC: N.ED 10:04 → N.EDINP 15:25 → SUATTDRO 15:25 → N.EDINP 17:03 → N.3E 17:26 → N.4E 12-03 09:20
PROVIDERS: ADMIT Hospitalist; ATTEND Internal Medicine